=== PATIENT | female | born 1990 | race Caucasian/White ===

== ENCOUNTER → 2024-02-01 | Outpatient (CLI) | payer OTHER, SELFPAY ==
[2024-02-05 21:07] LABS: Chlamydia By Nucleic Acid AMP Negative (Negative); Gonococcus By Nucleic Acid AMP Negative (Negative)
== END | disposition home or self-care (01) ==
PROVIDERS: PCP Internal Medicine; Referring Provider Advanced Practice Midwife; Visit Provider Advanced Practice Midwife
DX: O09.90 Supervision of high risk pregnancy, unspecified, unspecified trimester (principal); Z3A.00 Weeks of gestation of pregnancy not specified
CPT/HCPCS: 87086; 87491; 87591

== ENCOUNTER → 2024-02-09 | Outpatient (CLI) | payer OTHER, SELFPAY ==
--- NOTE | 2024-02-09 14:17 | US_ITS ---
EXAM: US FIRST TRIMESTER , TRANSABDOMINAL CLINICAL INDICATION: dating TECHNIQUE: Real-time transabdominal obstetrical ultrasound of the maternal pelvis and a first trimester with image documentation. COMPARISON: No relevant prior studies available. FINDINGS: GESTATION: There are twin gestational sacs. Fetus A has a crown-rump length of 3.2 cm age 9 weeks 6 days. Fetus A has a heart rate of 167 bpm. Fetus B has a crown-rump length of 2.6 cm age 9 weeks 1 day. Fetus B has a heart rate of 173 bpm. Gestational sac for fetus A is 4.5 x 2.9 x 2.9 cm. Gestational sac for fetus B measures 3.3 x 3.1 x 1.9 cm. PLACENTA/AMNIOTIC FLUID: There is a hypoechoic area in the uterus that measures 2.3 x 1.3 cm which may represent a subchorionic hemorrhage. UTERUS/CERVIX: The uterus measures 11.6 x 7.9 x 8.7 cm. No myometrial mass. OVARIES: Unremarkable. No mass. FREE FLUID: No free fluid. US/Init OB < 14Wks US IMPRESSION: 1. Twin gestation with fetus A abdomen and average ultrasound age of 9 weeks 2 days and ultrasound estimated due date of 09/11/2024 and fetus B has an ultrasound age of 8 weeks 4 days and ultrasound estimated due date of 09/16/2024. heart rates are 167 and 173 bpm respectively. 2. Small hypoechoic area in the uterus which may represent a subchorionic hemorrhage. Electronically Signed: Justino Garcia MD at 0:19 EDT ,
== END | disposition home or self-care (01) ==
PROVIDERS: PCP Internal Medicine; Visit Provider Advanced Practice Midwife
DX: O99.210 Obesity complicating pregnancy, unspecified trimester (principal); E66.01 Morbid (severe) obesity due to excess calories; Z3A.00 Weeks of gestation of pregnancy not specified; Z98.891 History of uterine scar from previous surgery
CPT/HCPCS: 76801

== ENCOUNTER 2024-02-28 11:55 | Outpatient (CLI) | payer OTHER, SELFPAY ==
[2024-02-28 12:20] VITALS: BP 130/79; PULSE 97; RESP 16; TEMP 36.3
[2024-02-28] MEDS: 0.9% NaCl Peripheral Flush Adult/Peds IV (12:50)
[2024-02-28] MEDS: Dextrose 5%-Lactated Ringers 1,000 ML 999 ML IV (12:50)
[2024-02-28] MEDS: Ondansetron 4 MG/2 ML Vial IV (12:53)
[2024-02-28 13:12] LABS: Absolute Lymphocyte Count 1.18 X10^3/uL (0.83-4.51); Absolute Neutrophil Count 7.5 X10^3/uL (2.0-7.7); Basophil# 0.02 X10^3/uL; Basophil% 0.2 % (0-1); Eosinophil# 0.02 X10^3/uL; Eosinophils% 0.2 % (0-5); Hematocrit 36.7 % (37-47); Hemoglobin 12.2 g/dL (12.0-15.0); Lymphocyte # 1.18 X10^3/ul (0.83-4.51); Lymphocyte % 12.7 % (19-41); Mean Corp Hgb Conc 33.2 g/dL (32-36); Mean Corpuscular Hgb 25.7 pg (27.0-32.0); Mean Corpuscular Volume 77.4 fL (81-99); Monocyte# 0.53 X10^3/uL; Monocyte% 5.7 % (0-10); NRBC Flagged by Analyzer 0 % (0-5); Neutrophil # 7.49 X10^3/uL (2.7-7.7); Neutrophil % 80.7 % (47-70); Platelet Count 250 K/mm3 (150-450); RBC Distribution Width CV 13.1 % (11.6-14.6); RBC Distribution Width SD 36.3 fl (35.1-43.9); Red Blood Count 4.74 M/mm3 (4.2-5.4); White Blood Count 9.3 K/mm3 (4.4-11.0)
[2024-02-28 14:01] LABS: ALB/GLOB Ratio 0.6 RATIO (0.9-2.4); AST(SGOT) 18 U/L (15-37); Alanine Aminotransfer ALT/SGPT 25 U/L (13-56); Alkaline Phosphatase 89 U/L (45-117); Anion Gap 9 (5-15); BUN 5 mg/dL (7-18); BUN/Creat Ratio 7.9 RATIO (10-20); Chloride 104 mmol/L (98-107); Creatinine, Serum 0.63 mg/dL (0.55-1.02); EST Glomerular Filtration Rate 116 mL/min (>60); Est Glom Filt Rate - Afr Amer 141 mL/min (>60); Globulin 5.1 g/dL (2.2-4.2); Glucose 91 mg/dL (74-106); Protein, Total 8.1 g/dL (6.4-8.2); Sodium Level 134 mmol/L (136-145); Thyroid Stim Hormone (TSH) 0.65 uIU/mL (0.358-3.74)
[2024-02-28 14:18] LABS: HIV - WCH Non-Reactive (Nonreactive); Hepatitis B Surface Antigen Non-Reactive (Nonreactive); Hepatitis C Antibody Non-Reactive (Nonreactive); Rubella IgG Equiv (Nonreactive); Syphilis Antibodies Non-reactive
== END 2024-02-28 23:59 | disposition home or self-care (01) ==
LOC: MEDOUTP 11:58
PROVIDERS: Advanced Practice Midwife; PCP Internal Medicine; Visit Provider Obstetrics & Gynecology
DX: O99.280 Endocrine, nutritional and metabolic diseases complicating pregnancy, unspecified trimester (principal); E66.01 Morbid (severe) obesity due to excess calories; Z68.42 Body mass index [BMI] 45.0-49.9, adult; E86.0 Dehydration; Z3A.00 Weeks of gestation of pregnancy not specified; O99.210 Obesity complicating pregnancy, unspecified trimester
CPT/HCPCS: 96374; 96361; 96372; 80053; 83036; 84443; 85025; 86703; 86762; 86780; 86803; 86850; 86900; 86901; 87340; A4216; J2405

== ENCOUNTER → 2024-03-07 | Outpatient (CLI) | payer OTHER, SELFPAY | END | disposition home or self-care (01) | LOC: PAVLAB 11:35 | PROVIDERS: Advanced Practice Midwife; PCP Internal Medicine; Visit Provider Obstetrics & Gynecology | DX: Z34.02 Encounter for supervision of normal first pregnancy, second trimester (principal); Z31.430 Encounter of female for testing for genetic disease carrier status for procreative management ==

== ENCOUNTER → 2024-03-19 | Outpatient (CLI) | payer OTHER, SELFPAY | END | disposition home or self-care (01) | LOC: PAVLAB 10:14 | PROVIDERS: PCP Internal Medicine; Referring Provider Obstetrics & Gynecology; Visit Provider Obstetrics & Gynecology | DX: Z34.82 Encounter for supervision of other normal pregnancy, second trimester (principal) ==

== ENCOUNTER → 2024-05-07 | Outpatient (CLI) | payer OTHER, SELFPAY ==
--- NOTE | 2024-05-07 15:10 | RAD_ITS ---
STUDY: X-RAY CHEST REASON FOR EXAM: Female, 33 years old. Rib pain. TECHNIQUE: Frontal and lateral views of the chest. COMPARISON: None. FINDINGS: The lungs are clear and expanded. There is no demonstrated pleural abnormality. Normal size heart. Normal mediastinum and iza. Normal visualized pulmonary arteries. Normal visualized aortic arch and descending thoracic aorta. Normal visualized thoracic spine. Normal visualized ribs, clavicles, and shoulders. No abnormality of the visualized soft tissue structures of the upper abdomen. RAD/Chest PA and Lateral IMPRESSION: Normal x-ray examination of the chest. Electronically Signed: Guy Rios MD at 15:36 EDT ,
== END | disposition home or self-care (01) ==
LOC: RAD 15:05
PROVIDERS: PCP Internal Medicine; Referring Provider Obstetrics & Gynecology; Visit Provider Obstetrics & Gynecology
DX: R07.89 Other chest pain (principal)
CPT/HCPCS: 71046

== ENCOUNTER → 2024-05-30 | Outpatient (CLI) | payer OTHER, SELFPAY ==
[2024-05-30 11:12] LABS: Absolute Lymphocyte Count 0.97 X10^3/uL (0.83-4.51); Basophil# 0.02 X10^3/uL; Basophil% 0.2 % (0-1); Eosinophil# 0.03 X10^3/uL; Eosinophils% 0.3 % (0-5); Hematocrit 29.3 % (37-47); Hemoglobin 9.6 g/dL (12.0-15.0); Lymphocyte # 0.97 X10^3/ul (0.83-4.51); Lymphocyte % 10.1 % (19-41); Mean Corp Hgb Conc 32.8 g/dL (32-36); Mean Corpuscular Hgb 26.9 pg (27.0-32.0); Mean Corpuscular Volume 82.1 fL (81-99); Mean Platelet Vol. 9.1 fl (6.2-12.0); Monocyte# 0.43 X10^3/uL; Monocyte% 4.5 % (0-10); NRBC Flagged by Analyzer 0 % (0-5); Neutrophil # 8.03 X10^3/uL (2.7-7.7); Neutrophil % 83.5 % (47-70); Platelet Count 210 K/mm3 (150-450); RBC Distribution Width CV 13.7 % (11.6-14.6); RBC Distribution Width SD 40.3 fl (35.1-43.9); Red Blood Count 3.57 M/mm3 (4.2-5.4); White Blood Count 9.6 K/mm3 (4.4-11.0)
[2024-05-30 11:28] LABS: Glucose Challenge Gest 1H 50g 140 mg/dL (70-140)
[2024-05-30 12:14] LABS: HIV - WCH Non-Reactive (Nonreactive); Syphilis Antibodies Non-reactive
== END | disposition home or self-care (01) ==
PROVIDERS: PCP Internal Medicine; Referring Provider Advanced Practice Midwife; Visit Provider Advanced Practice Midwife
DX: Z13.1 Encounter for screening for diabetes mellitus (principal)
CPT/HCPCS: 36415; 82950; 85025; 86703; 86780

== ENCOUNTER → 2024-06-05 | Outpatient (CLI) | payer OTHER, SELFPAY ==
[2024-06-05 07:36] LABS: Glucose GTT-Gestation. Fasting 101 mg/dL (<105)
[2024-06-05 09:01] LABS: Glucose GTT-Gestational 1 Hr 152 mg/dL (<190)
[2024-06-05 10:02] LABS: Glucose GTT-Gestational 2 Hr 131 mg/dL (<165)
[2024-06-05 11:12] LABS: Glucose GTT-Gestational 3 Hr 97 L (<145)
== END | disposition home or self-care (01) ==
LOC: LAB 06:55
PROVIDERS: PCP Internal Medicine; Referring Provider Obstetrics & Gynecology; Visit Provider Obstetrics & Gynecology
DX: Z13.1 Encounter for screening for diabetes mellitus (principal)
CPT/HCPCS: 36415; 82951; 82952

== ENCOUNTER → 2024-06-19 | Outpatient (CLI) | payer OTHER, SELFPAY | END | disposition home or self-care (01) | LOC: WOBLAB 10:45 | PROVIDERS: PCP Internal Medicine; Referring Provider Obstetrics & Gynecology; Visit Provider Obstetrics & Gynecology | DX: Z34.02 Encounter for supervision of normal first pregnancy, second trimester (principal); Z3A.00 Weeks of gestation of pregnancy not specified | CPT/HCPCS: 36415 ==

== ENCOUNTER 2024-07-17 11:30 | Outpatient (CLI) | payer OTHER, SELFPAY ==
[2024-07-17] VITALS (17 sets, daily range): BP systolic 128–142; BP diastolic 67–86; PULSE 80–106; RESP 16; TEMP 36.5; O2SAT 92–100; BMI 45.8
[2024-07-17 11:58] LABS: Hematocrit 31.1 % (37-47); Hemoglobin 10.4 g/dL (12.0-15.0); Mean Corp Hgb Conc 33.4 g/dL (32-36); Mean Corpuscular Hgb 26.3 pg (27.0-32.0); Mean Corpuscular Volume 78.5 fL (81-99); Mean Platelet Vol. 9.6 fl (6.2-12.0); Platelet Count 207 K/mm3 (150-450); RBC Distribution Width CV 12.6 % (11.6-14.6); RBC Distribution Width SD 35.9 fl (35.1-43.9); Red Blood Count 3.96 M/mm3 (4.2-5.4); White Blood Count 9.3 K/mm3 (4.4-11.0)
[2024-07-17 12:37] LABS: AST(SGOT) 12 U/L (15-37); Alanine Aminotransfer ALT/SGPT 12 U/L (13-56); Creatinine, Serum 0.53 mg/dL (0.55-1.02); EST Glomerular Filtration Rate 143 mL/min (>60); Est Glom Filt Rate - Afr Amer 173 mL/min (>60); LDH 157 U/L (84-246); Uric Acid 5.3 mg/dL (2.6-6.0)
[2024-07-17 13:12] LABS: Protein, Urine (Random) 22.5 mg/dL (<11.9); Protein:Creat Ratio 172 mg/g CRE (0-200)
--- NOTE | 2024-07-17 19:09 | OB.TRI.HP_ITS ---
HPI - General HPI Narrative CHUCK SOL, is a 33 y/o @ 32 weeks with di/di twins who presents to L&D to rule out pre-eclampsia. She informed me in the office of frequent headaches and was found to have an inital blood pressure of 140's/90's. The lowest in the office was 138/85. She denies epigastric pain or visual changes. Maternal Data Information ML Calculator Estimated Delivery Date Method Current WG Current Estimate 09/09/24 LMP (Certain) 32w 2d Other Estimates 09/07/24 Ultrasound #1 32w 4d # 2 PFSH PFSH Medical History Anesthesia complication Scoliosis Depression Anxiety Anemia Migraine headache Gastric reflux Non-smoker Seasonal allergies Congenital duplication of colon Home Medications ?Medication ?Instructions ?Recorded ?Last Taken ?Type PNV 153-FA 400 mcg-om3 35 mg-dha 1 tab PO DAILY SUPPLEMENT 01/26/24 07/16/24 History 25 mg-epa 5 mg-fish oil chew tablet omeprazole 20 mg capsule,delayed 20 mg PO DAILY GERD 01/26/24 07/16/24 History release ondansetron 4 mg disintegrating 4 mg PO Q6H PRN nausea and 02/29/24 07/16/24 Rx tablet vomiting #30 tabs cyclobenzaprine 5 mg tablet 5 mg PO QHS PRN headache #30 tabs 06/19/24 Unknown Rx venlafaxine 75 mg capsule,extended 75 mg PO QAM ANTI-DEPRESSANT #30 06/19/24 07/16/24 Rx release 24 hr (Effexor XR) caps ferrous sulfate 325 mg (65 mg 325 mg PO DAILY SUPPLEMENT 07/08/24 07/16/24 History iron) tablet (FeroSul) Allergy/AdvReac Type Severity Reaction Status Date / Time No Known Allergies Allergy Verified 07/17/24 11:58 Family History Father Colon cancer, Onset Age: 58 colon CVA (cerebral vascular accident), Onset Age: 59 post colon surgery Surgical History H/O section History of arthroscopic knee surgery History of cholecystectomy Social History (Reviewed 07/17/24 @ 10:50 by Alla Mercado adopted: No household members: spouse and children number of children: 1 current occupational status: employed 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 current occupational exposures/hazards: No pets and animals: Yes pets and animals: dog(s) history of recent travel: Yes ([place], [place]) out of state: Yes out of country: No sexually active: Yes Smoking Status: Never smoker alcohol intake: never substance use type: does not use well-balanced diet: daily or most days caffeine: Yes Type: carbonated beverages Number of servings: 3 eating out: 1-3 times/week during the past year weight has: increased > 10 lbs what type of physical activity do you participate in: walking frequency: daily duration: 15-30 minutes/day mamta/worship: None seatbelt use: always do you feel safe at home: Yes additional social history: Issac [employer]- [employer] History 2 Elective abortions Hx Para 1 Spontaneous abortions Hx # Term Pregnancies Ectopic pregnancies Hx # Pregnancies Multiple births # of living children 1 Past Pregnancies Del. Date Name GA/Weeks Outcome Route Bth Weight Infant Gen Labor Lgth Anesthesia Del Locatn Provider FOB 10/13/13 Melissa 38 live - full term 6#15 oz Female [facility] Dr. Estelle Davenport Delivery Date: 10/13/13 Last Updated by: Jasmin Eugene CS failure to progress, general due to scoliosis Visit Details Expected Delivery Route/Plan RLTCS and BS Plans Covid status: [] Flu vaccine: [] Tdap vaccine: [] Rhogam: [] LARC form signed: [] Problem list reviewed and updated with the most current plan of care details and appropriate orders placed. Relevant counseling for the gestational age provided. Continue routine care and follow up unless otherwise noted in visit notes/problem list details OB Flowsheet Initial Weight: Not Recorded Date -?-?-?-?-?-?-?-?-?-?-?-?- EGA Weight BP Urine Prot -?-?-?-?-?-?-?-?-?-?-?-?- Glucose FHR FuHt Pres Dilation -?-?-?-?-?-?-?-?-?-?-?-?- Effaced St Visit Note 02/01/24 -?-?-?-?-?-?-?-?-?-?-?-?- 8w 3d 296 lb 8 oz 125/84 -?-?-?-?-?-?-?-?-?-?-?-?- A 187 -?-?-?-?-?-?-?-?-?-?-?-?- B A -?-?-?-?-?-?-?-?-?-?-?-?- B -?-?-?-?-?-?-?-?-?-?-?-?- A -?-?-?-?-?-?-?-?-?-?-?-?- B A KW- CRL not cons with dates. formal us ordered. NIPT and Carrier to be drawn before next appt. A1C with labs for BMI. general anest with last C/S. Will need anesthesia consult prior to R C/S. -?-?-?-?-?-?-?-?-?-?-?-?- B 03/07/24 -?-?-?-?-?-?-?-?-?-?-?-?- 13w 3d 286 lb 4 oz 126/85 Nega tive -?-?-?-?-?-?-?-?-?-?-?-?- Negative A 147 -?-?-?-?-?-?-?-?-?-?-?-?- B 155 A -?-?-?-?-?-?-?-?-?-?-?-?- B -?-?-?-?-?-?-?-?-?-?-?-?- A -?-?-?-?-?-?-?-?-?-?-?-?- B A JV- di di twins on hosptial scan. difficult to scan today but both CRL are 13 weeks 1 day and consistent with LMP. ordering NIPT and carrier testing today. pt wasnts rpt section. is worried about her spine curve and having to go to sleep. had general with last section. wants anesthesia consult prior to section. -?-?-?-?-?-?-?-?-?-?-?-?- B 04/05/24 -?-?-?-?-?-?-?-?-?-?-?-?- 17w 4d 283 lb 117/80 -?-?-?-?-?-?-?-?-?-?-?-?- A 145 -?-?-?-?-?-?-?-?-?-?-?-?- B 145 A -?-?-?-?-?-?-?-?-?-?-?-?- B -?-?-?-?-?-?-?-?-?-?-?-?- A -?-?-?-?-?-?-?-?-?-?-?-?- B A SM- no vb lof cr amping -?-?-?-?-?-?-?-?-?-?-?-?- B 04/30/24 -?-?-?-?-?-?-?-?-?-?-?-?- 21w 1d 284 lb 6 oz 134/80 Nega tive -?-?-?-?-?-?-?-?-?-?-?-?- Negative A 150 -?-?-?-?-?-?-?-?-?-?-?-?- B 148 A -?-?-?-?-?-?-?-?-?-?-?-?- B -?-?-?-?--?-?-?-?-?-?-?-?- A -?-?-?-?-?-?-?-?-?-?-?-?- B A KW- no vb/crampi ng. 28 week labs discussed and drink given. Has follow up anatomy US in a few weeks. -?-?-?-?-?-?-?-?--?-?-?-?- B 05/07/24 -?-?-?-?-?-?-?-?-?-?-?-?- 22w 1d 283 lb 8 oz 130/81 Nega tive -?-?-?-?-?-?-?-?-?-?-?-?- Negative A 144 -?-?-?-?-?-?-?-?-?-?-?-?- B 143 A Transverse -?-?-?-?-?-?-?-?-?-?-?-?- B Transverse -?-?-?-?-?-?-?-?-?-?-?-?- A -?-?-?-?-?-?-?-?-?-?-?-?- B A JV- pt presents with acute right lower rib pain radiation around chest to back. She has tenderness with palpation over the bucket handle location. She also has some reproducible right pump handle location pain as well. sending for pa/lateral cxr. likely costochondritis or bucket handle dysfunction, but need to rule out fracture or other etiology. pt states was in bed and rolled over and felt the pain instantly. -?-?-?-?-?-?-?-?-?-?-?-?- B 05/30/24 -?-?-?-?-?-?-?-?-?-?-?-?- 25w 3d 288 lb 118/81 Negative -?-?-?-?-?-?-?-?-?-?-?-?- Negative A 155 -?-?-?-?-?-?-?-?-?-?-?-?- B 145 A -?-?-?-?-?-?-?-?-?-?-?-?- B -?-?-?-?-?-?-?-?-?-?-?-?- A -?-?-?-?-?-?-?-?-?-?-?-?- B A SM- no vb lof go od fm n oregular ctx discussed anatomy findings, patient wants NIPT again -?-?-?-?-?-?-?-?-?-?-?-?- B 06/19/24 -?-?-?-?-?-?-?-?-?-?-?-?- 28w 2d 287 lb 119/85 -?-?-?-?-?-?-?-?-?-?-?-?- A 130 -?-?-?-?-?-?-?-?-?-?-?-?- B 120 A Cephalic -?-?-?-?-?-?-?-?-?-?-?-?- B Breech -?-?-?-?-?-?-?-?-?-?-?-?- A -?-?-?-?-?-?-?-?-?-?-?-?- B A JV- pt is tearfu l today. after long discussion, plan is to restart antidepressants. Requesting 37 week rpt cs and likely will happen due to single umbilical artery and other high risk problems. request anesthesia consult placed. needs echo later this week. bpps or nsts weekly after 34 weeks. -?-?-?-?-?-?-?-?-?-?-?-?- B 07/04/24 -?-?-?-?-?-?-?-?-?-?-?-?- 30w 3d 288 lb 4 oz 131/88 Nega tive -?-?-?-?-?-?-?-?-?-?-?-?- Negative A 140 -?-?-?-?-?-?-?-?-?-?-?-?- B 153 A Transverse -?-?-?-?-?-?-?-?-?-?-?-?- B Transverse -?-?-?-?-?-?-?-?-?-?-?-?- A -?-?-?-?-?-?-?-?-?-?-?-?- B A JV- still lots o f pressure, no contractions. had normal echos. next growth scan in in 2 weeks. -?-?-?-?-?-?-?-?-?-?-?-?- B 07/17/24 -?-?-?-?-?-?-?-?-?-?-?-?- 32w 2d 294 lb 141/87 Trace -?--?-?-?-?-?-?-?-?-?-?-?- Negative A 146 -?-?-?-?-?-?-?-?-?-?-?-?- B 148 A Transverse -?-?-?-?-?-?-?-?-?-?-?-?- B Transverse -?-?-?-?-?-?-?-?-?-?-?-?- A -?-?-?-?-?-?-?-?-?-?-?-?- B A JV- pt has eleva josemanuel pressures today and a headache for last week. sending to L&D for Pre-e work-up. -?-?-?-?-?-?-?-?-?-?-?-?- B ROS Constitutional Constitutional: Reports systems reviewed and no addt'l complaints, except as documented Gastrointestinal Gastrointestinal: Denies bloating, constipation, cramping, diarrhea, nausea or vomiting Genitourinary Genitourinary: Reports other Details: Denies vaginal odor, vaginal bleeding, or vaginal discharge ; Denies difficulty urinating or flank pain NST FHR Rate Baby A Baseline: 150 Variability:: Moderate Accelerations:: 15 x 15 Decelerations:: None NST Reactive:: Yes FHR Category:: Category I FHR Rate Baby B Baseline: 160 Variability:: Moderate Accelerations:: 15 x 15 Decelerations:: None NST Reactive:: Yes Assessment & Plan (1) Headache in : (2) Anemia affecting : COMMENT: repeat cbc in 4 weeks (3) Rib pain on right side: COMMENT: CXR ordered (4) Two vessel umbilical cord: COMMENT: twin A (5) Rubella non-immune status, antepartum: COMMENT: equivocal. offer MMR PP (6) Dichorionic diamniotic twin gestation: COMMENT: plan anesthesia consult prior to section. had general with last section. (7) Supervision of high risk , antepartum: COMMENT: PRR, , ML 09/09/23, KRISTIE Torres, Issac (8) Abnormal Pap smear of cervix: COMMENT: 12/14/23- +HPV (9) Previous section: COMMENT: RLTCS scheduled for 08/20 @ 12 with JV desires repeat and BTO. (10) COVID: COMMENT: asa 81mg daily (11) Anxiety and depression: (12) : QUALIFIERS: Weeks of gestation: 32 weeks Qualified Code(s): Z3A.32 - 32 weeks gestation of COMMENT: NIPT low risk, Carrier neg. . anatomy reviewed and needs fu views to complete (13) PCOS (polycystic ovarian syndrome): (14) Morbid obesity with BMI of 45.0-49.9, adult: COMMENT: 48 at NOB-NSTs at 34 weeks (15) Scoliosis: COMMENT: was put under general anesthesia. Anesthesia consult scheduled for 07/08 @ PLAN: Plan bpp is reactive x 2, PIH labs are all normal. BP's were within her normal range ok to dc to home. Plan for her to have an anesthesia consult due to scoliosis Charges/Coding Multi Select Codes Urinary/Genital Urinary/Genital CPT Codes: 64111-02 non-stress test Interp
== END 2024-07-17 14:23 | disposition home or self-care (01) ==
LOC: WPOUT 11:35 → WP 11:36
PROVIDERS: PCP Internal Medicine; Referring Provider Obstetrics & Gynecology; Visit Provider Obstetrics & Gynecology
DX: O30.043 Twin pregnancy, dichorionic/diamniotic, third trimester (principal); E66.01 Morbid (severe) obesity due to excess calories; Z3A.32 32 weeks gestation of pregnancy; O99.343 Other mental disorders complicating pregnancy, third trimester; F32.A Depression, unspecified; F41.9 Anxiety disorder, unspecified; Z79.899 Other long term (current) drug therapy; O99.013 Anemia complicating pregnancy, third trimester; O69.89X1 Labor and delivery complicated by other cord complications, fetus 1; O34.211 Maternal care for low transverse scar from previous cesarean delivery; O99.213 Obesity complicating pregnancy, third trimester
CPT/HCPCS: 36415; 59025; 59050; 82565; 82570; 83615; 84156; 84450; 84460; 84550; 85027; 99221; G0378

== ENCOUNTER 2024-07-24 13:38 | Outpatient (CLI) | payer OTHER, SELFPAY ==
[2024-07-24] VITALS (9 sets, daily range): BP systolic 135–158; BP diastolic 85–98; PULSE 86–106; RESP 15; TEMP 36.5; BMI 45.6
[2024-07-24] MEDS: Lactated Ringers 1,000 ML 999 ML IV (14:15)
[2024-07-24] MEDS: Ondansetron 4 MG/2 ML Vial IM (15:08)
[2024-07-24] MEDS: Mag Hydrox/Al Hydrox/Simeth 30 ML UDC PO (15:08)
[2024-07-24 15:16] LABS: AST(SGOT) 12 U/L (15-37); Alanine Aminotransfer ALT/SGPT 11 U/L (13-56); Creatinine, Serum 0.51 mg/dL (0.55-1.02); EST Glomerular Filtration Rate 147 mL/min (>60); Est Glom Filt Rate - Afr Amer 178 mL/min (>60); Estimated Creatinine Clearance 224.39 ml/min; Uric Acid 4.9 mg/dL (2.6-6.0)
[2024-07-24 15:25] LABS: Protein:Creat Ratio 173 mg/g CRE (0-200)
[2024-07-24] MEDS: Betamethasone/Betamethasone 30 MG/5 ML Vial 12 MG IM (15:27)
[2024-07-24 15:41] LABS: Hematocrit 30.7 % (37-47); Hemoglobin 9.9 g/dL (12.0-15.0); Mean Corp Hgb Conc 32.2 g/dL (32-36); Mean Corpuscular Hgb 25.7 pg (27.0-32.0); Mean Corpuscular Volume 79.7 fL (81-99); Mean Platelet Vol. 10.2 fl (6.2-12.0); Platelet Count 188 K/mm3 (150-450); RBC Distribution Width CV 12.9 % (11.6-14.6); RBC Distribution Width SD 36.5 fl (35.1-43.9); Red Blood Count 3.85 M/mm3 (4.2-5.4); White Blood Count 10.7 K/mm3 (4.4-11.0)
[2024-07-24 16:03] LABS: ALB/GLOB Ratio 0.5 RATIO (0.9-2.4); AST(SGOT) 10 U/L (15-37); Alanine Aminotransfer ALT/SGPT 13 U/L (13-56); Albumin, Serum 2.3 g/dL (3.2-5.0); Alkaline Phosphatase 159 U/L (45-117); Anion Gap 6 (5-15); BUN 4 mg/dL (7-18); BUN/Creat Ratio 7.5 RATIO (10-20); Calcium,Total 8.9 mg/dL (8.5-10.1); Chloride 108 mmol/L (98-107); Creatinine, Serum 0.54 mg/dL (0.55-1.02); EST Glomerular Filtration Rate 140 mL/min (>60); Est Glom Filt Rate - Afr Amer 169 mL/min (>60); Estimated Creatinine Clearance 211.93 ml/min; Globulin 4.5 g/dL (2.2-4.2); Glucose 96 mg/dL (74-106); Lipase 34 U/L (13-75); Protein, Total 6.8 g/dL (6.4-8.2); Sodium Level 138 mmol/L (136-145)
--- NOTE | 2024-08-11 06:20 | OB.TRI.PN_ITS ---
Progress Notes Date of Service: 07/24/24 Progress Note: Patient presents for triage evaluation secondary to abdominal pain, vomiting FHT: 145 Moderate variability reactive no decelerations category I tracing [place]: n oregular Contractions Assessment and plan: abdominal pain, vomiting 33 weeks Reactive NST, reassuring maternal and status patient discharged to home to follow-up as scheudled. See problem list details for additional plan information. Laboratory Studies: Laboratory Tests 07/24/24 07/24/24 Range/Units 15:00 14:15 WBC 10.7 Cancelled Corrected WBC Cancelled RBC 3.85 L Cancelled Hgb 9.9 L Cancelled Hct 30.7 L Cancelled MCV 79.7 L Cancelled MCH 25.7 L Cancelled MCHC 32.2 Cancelled RDW Std Deviation 36.5 Cancelled RDW Coeff of Shola 12.9 Cancelled Plt Count 188 Cancelled MPV 10.2 Cancelled Diff Path Review Cancelled Sodium 138 (136-145) mmol/L Potassium 4.0 (3.5-5.1) mmol/L Chloride 108 H (98-107) mmol/L Carbon Dioxide 25.0 (21.0-32.0) mmol/L Anion Gap 6 (5-15) BUN 4 L (7-18) mg/dL Creatinine 0.54 L 0.51 L (0.55-1.02) mg/dL Estim Creat Clear Calc 211.93 224.39 ml/min Est GFR (MDRD) Af Amer 169 178 (>60) mL/min Est GFR (MDRD) Non-Af 140 147 (>60) mL/min BUN/Creatinine Ratio 7.5 L (10-20) RATIO Glucose 96 (74-106) mg/dL Uric Acid 4.9 (2.6-6.0) mg/dL Calcium 8.9 (8.5-10.1) mg/dL Total Bilirubin 0.20 (0.20-1.00) mg/dL AST 10 L 12 L (15-37) U/L ALT 13 11 L (13-56) U/L Alkaline Phosphatase 159 H (45-117) U/L Total Protein 6.8 (6.4-8.2) g/dL Albumin 2.3 L (3.2-5.0) g/dL Globulin 4.5 H (2.2-4.2) g/dL Albumin/Globulin Ratio 0.5 L (0.9-2.4) RATIO Lipase 34 (13-75) U/L U Random Total Protein 31.0 H (<11.9) mg/dL Urine Creatinine 179.00 (NO RANGE EST.) mg/dL Protein/Creatinin Ratio 173 (0-200) mg/g CRE Charges/Coding Procedures Urinary/Genital 52xxx-59xxx: [id number] non-stress test Interp Assessment & Plan (1) 33 weeks gestation of : (2) Abdominal pain during in third trimester:
== END 2024-07-24 16:44 | disposition home or self-care (01) ==
LOC: WPOUT 13:41 → WP 13:41
PROVIDERS: PCP Internal Medicine; Referring Provider Obstetrics & Gynecology; Visit Provider Obstetrics & Gynecology
DX: O99.891 Other specified diseases and conditions complicating pregnancy (principal); Z3A.33 33 weeks gestation of pregnancy; R10.9 Unspecified abdominal pain
CPT/HCPCS: 96360; 36415; 59025; 59050; 80053; 82565; 82570; 83690; 84156; 84450; 84460; 84550; 85027; 96372; 99221; G0378; J0702; J2405

== ENCOUNTER 2024-07-25 14:53 | Outpatient (CLI) | payer OTHER, SELFPAY ==
[2024-07-25] MEDS: Betamethasone/Betamethasone 30 MG/5 ML Vial 12 MG IM (15:18)
[2024-07-25 15:19] VITALS: BP 135/74; PULSE 94
--- NOTE | 2024-07-25 15:38 | NURSING ---
Called Dr. Sterling at 1529 to notify of pt receiving second dose of Celestone. She is 33.3 weeks with twins. Pt c/o feeling very tired, having increased nausea and overall feeling of malaise since starting on labetalol and receiving Celestone yesterday. BP was 135/74 and Pulse of 94. Pt was started on Labetalol yesterday for elevated BP in the 150's while she was here and has a f/u scheduled for Monday in the office. Pt is taking her BP during the day and before taking her labetalol. Asked Dr. Sterling if there was anything that she would like done before patient goes home. Dr. Sterling states that BP is appropriate after starting labetalol and to f/u in the office on monday, but to notify the doctor production engineer if symptoms change or worsen.
--- NOTE | 2024-08-05 09:45 | PCM.PN.BLA ---
Progress Note patient presents today for her second celestone injection only. The order was written for 12.5 mg IM x2, today will be her second injection. She has no complaints.
== END 2024-07-25 15:30 | disposition home or self-care (01) ==
LOC: WPOUT 14:57 → WP 14:57
PROVIDERS: PCP Internal Medicine; Referring Provider Obstetrics & Gynecology; Visit Provider Obstetrics & Gynecology
DX: Z34.90 Encounter for supervision of normal pregnancy, unspecified, unspecified trimester (principal); Z3A.00 Weeks of gestation of pregnancy not specified
CPT/HCPCS: 96372; 99221; G0378; J0702

== ENCOUNTER 2024-07-26 15:41 | Inpatient (IN) | payer OTHER, SELFPAY ==
[2024-07-26] VITALS (32 sets, daily range): BP systolic 102–153; BP diastolic 49–85; PULSE 70–116; RESP 16–20; TEMP 36.3–37.7; O2SAT 96–100; BMI 45.7
--- NOTE | 2024-07-26 12:13 | US_ITS ---
EXAM: US BIOPHYSICAL PROFILE WITHOUT NON-STRESS TESTING CLINICAL INDICATION: well being - twins TECHNIQUE: Real-time ultrasound of the maternal pelvis for biophysical profile evaluation for both of the twin fetuses with image documentation. COMPARISON: No relevant prior studies available. FINDINGS: Live twin intrauterine . The placenta is anterior. (The brain is noted which may indicate monochorionic/diamniotic gestation. FETUS A: heart rate: 147 bpm. Transverse lie with head to the maternal right. BREATHING MOVEMENTS: Absent. Score 0/2. GROSS BODY MOVEMENTS: Absent. Score 0/2. TONE: Present. Score 2/2. QUALITATIVE AMNIOTIC FLUID VOLUME: Within normal limits. Score 2/2. FETUS B: heart rate: 143 bpm. Transverse lie with head to the maternal left. BREATHING MOVEMENTS: Absent. Score 0/2. GROSS BODY MOVEMENTS: Present. Score 2/2. TONE: Present. Score 2/2. QUALITATIVE AMNIOTIC FLUID VOLUME: Within normal limits. Score 2/2. IMPRESSION: Live twin intrauterine . Fetus A has a biophysical profile score of 4/8. Fetus B has a biophysical profile score of 6/8. Electronically Signed: Akbar Ferguson MD at 23:32 EST , EXAM: US BIOPHYSICAL PROFILE WITHOUT NON-STRESS TESTING CLINICAL INDICATION: well being - twins TECHNIQUE: Real-time ultrasound of the maternal pelvis for biophysical profile evaluation for both of the twin fetuses with image documentation. COMPARISON: No relevant prior studies available. FINDINGS: Live twin intrauterine . The placenta is anterior. (The brain is noted which may indicate monochorionic/diamniotic gestation. FETUS A: heart rate: 147 bpm. Transverse lie with head to the maternal right. BREATHING MOVEMENTS: Absent. Score 0/2. GROSS BODY MOVEMENTS: Absent. Score 0/2. TONE: Present. Score 2/2. QUALITATIVE AMNIOTIC FLUID VOLUME: Within normal limits. Score 2/2. FETUS B: heart rate: 143 bpm. Transverse lie with head to the maternal left. BREATHING MOVEMENTS: Absent. Score 0/2. GROSS BODY MOVEMENTS: Present. Score 2/2. TONE: Present. Score 2/2. QUALITATIVE AMNIOTIC FLUID VOLUME: Within normal limits. Score 2/2. US/Biophysical Prof W/O Non Stres IMPRESSION: Live twin intrauterine . Fetus A has a biophysical profile score of 4/8. Fetus B has a biophysical profile score of 6/8. Electronically Signed: Akbar Ferguson MD at 23:33 EST ,
[2024-07-26] MEDS: Lactated Ringers 1,000 ML 999 ML IV (15:50)
[2024-07-26 16:06] LABS: Absolute Lymphocyte Count 1.33 X10^3/uL (0.83-4.51); Absolute Neutrophil Count 10.4 X10^3/uL (2.0-7.7); Basophil# 0.03 X10^3/uL; Basophil% 0.2 % (0-1); Hematocrit 32.4 % (37-47); Hemoglobin 10.6 g/dL (12.0-15.0); Lymphocyte # 1.33 X10^3/ul (0.83-4.51); Lymphocyte % 10.3 % (19-41); Mean Corp Hgb Conc 32.7 g/dL (32-36); Mean Corpuscular Hgb 26.4 pg (27.0-32.0); Mean Corpuscular Volume 80.6 fL (81-99); Mean Platelet Vol. 9.9 fl (6.2-12.0); Monocyte# 0.85 X10^3/uL; Monocyte% 6.6 % (0-10); NRBC Flagged by Analyzer 0 % (0-5); Neutrophil # 10.42 X10^3/uL (2.7-7.7); Neutrophil % 81.1 % (47-70); Platelet Count 236 K/mm3 (150-450); RBC Distribution Width CV 12.7 % (11.6-14.6); RBC Distribution Width SD 36.4 fl (35.1-43.9); Red Blood Count 4.02 M/mm3 (4.2-5.4); White Blood Count 12.9 K/mm3 (4.4-11.0)
--- NOTE | 2024-07-26 16:18 | PCM.HP.OB ---
HPI - General General Date of Admission: 07/26/24 HPI Narrative CHUCK SOL, is a 33 y/o , di/di twins at 33 weeks 4 days who presents Iram[facility]D after a fall. NST of baby A was non-reactive without accelerations and no decelerations. Baby B was reactive. A BPP was performed and baby A's score was 4/10, baby B's score was 8/10. Baby also has a single artery cord and borderline polyhydramnios. The patient was worked up for possible pre-eclampsia 48 hours ago and received steroids x 2. Consultation with [facility] in [place] recommended urgent delivery due to non-reassuring testing of baby A. they do not recommend transportation at this time. The patient has a history of general anesthesia due to scoliosis and 3 tries with an epidural in the past . Dr. Johnston reviewed her PAT assessment a week ago and agreed to try a spinal and if no success, the plan is to proceed with a general anesthetic. Maternal Data Information ML Calculator Estimated Delivery Date Method Current WG Current Estimate 09/09/24 LMP (Certain) 33w 4d Other Estimates 09/07/24 Ultrasound #1 33w 6d # 2 PFSH PFSH Medical History Anesthesia complication Scoliosis Depression Anxiety Anemia Migraine headache Gastric reflux Non-smoker Seasonal allergies Congenital duplication of colon Home Medications ?Medication ?Instructions ?Recorded ?Last Taken ?Type PNV 153-FA 400 mcg-om3 35 mg-dha 1 tab PO DAILY SUPPLEMENT 01/26/24 07/25/24 History 25 mg-epa 5 mg-fish oil chew tablet omeprazole 20 mg capsule,delayed 20 mg PO DAILY GERD 01/26/24 07/25/24 History release ondansetron 4 mg disintegrating 4 mg PO Q6H PRN nausea and 02/29/24 07/24/24 Rx tablet vomiting #30 tabs cyclobenzaprine 5 mg tablet 5 mg PO QHS PRN headache #30 tabs 06/19/24 Unknown Rx venlafaxine 75 mg capsule,extended 75 mg PO QAM ANTI-DEPRESSANT #30 06/19/24 07/26/24 Rx release 24 hr (Effexor XR) caps ferrous sulfate 325 mg (65 mg 325 mg PO DAILY SUPPLEMENT 07/08/24 07/26/24 History iron) tablet (FeroSul) labetalol 100 mg tablet 100 mg PO BID hypertension #60 07/24/24 07/26/24 Rx tabs Allergy/AdvReac Type Severity Reaction Status Date / Time No Known Allergies Allergy Verified 07/26/24 16:13 Family History Father Colon cancer, Onset Age: 58 colon CVA (cerebral vascular accident), Onset Age: 59 post colon surgery Surgical History H/O section History of arthroscopic knee surgery History of cholecystectomy Social History adopted: No household members: spouse and children number of children: 1 current occupational status: employed 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 current occupational exposures/hazards: No pets and animals: Yes pets and animals: dog(s) history of recent travel: Yes ([place], [place]) out of state: Yes out of country: No sexually active: Yes Smoking Status: Never smoker alcohol intake: never substance use type: does not use well-balanced diet: daily or most days caffeine: Yes Type: carbonated beverages Number of servings: 3 eating out: 1-3 times/week during the past year weight has: increased > 10 lbs what type of physical activity do you participate in: walking frequency: daily duration: 15-30 minutes/day mamta/caodaism: None seatbelt use: always do you feel safe at home: Yes additional social history: Issac [employer] History 2 Elective abortions Hx Para 1 Spontaneous abortions Hx # Term Pregnancies Ectopic pregnancies Hx # Pregnancies Multiple births # of living children 1 Past Pregnancies Del. Date Name GA/Weeks Outcome Route Bth Weight Gen Labor Lgth Anesthesia Del Locatn Provider FOB 10/13/13 Melissa 38 live - full term 6#15 oz Female [facility] Dr. Estelle Davenport Delivery Date: 10/13/13 Last Updated by: Jasmin Eugene CS failure to progress, general due to scoliosis Visit Details Expected Delivery Route/Plan RLTCS and BS Plans Covid status: [] Flu vaccine: [] Tdap vaccine: [] Rhogam: [] LARC form signed: [] Problem list reviewed and updated with the most current plan of care details and appropriate orders placed. Relevant counseling for the gestational age provided. Continue routine care and follow up unless otherwise noted in visit notes/problem list details OB Flowsheet Initial Weight: Not Recorded Date <del>?</del> EGA Weight BP Urine Prot <del>?</del> Glucose FHR FuHt Pres Dilation <del>?</del> Effaced St Visit Note 02/01/24 <del>?</del> 8w 3d 296 lb 8 oz 125/84 <del>?</del> A 187 <del>?</del> B A <del>?</del> B <del>?</del> A <del>?</del> B A KW- CRL not cons with dates. formal us ordered. NIPT and Carrier to be drawn before next appt. A1C with labs for BMI. general anest with last C/S. Will need anesthesia consult prior to R C/S. <del>?</del> B 03/07/24 <del>?</del> 13w 3d 286 lb 4 oz 126/85 Negative <del>?</del> Negative A 147 <del>?</del> B 155 A <del>?</del> B <del>?</del> A <del>?</del> B A JV- di di twins on hosptial scan. difficult to scan today but both CRL are 13 weeks 1 day and consistent with LMP. ordering NIPT and carrier testing today. pt wasnts rpt section. is worried about her spine curve and having to go to sleep. had general with last section. wants anesthesia consult prior to section. <del>?</del> B 04/05/24 <del>?</del> 17w 4d 283 lb 117/80 <del>?</del> A 145 <del>?</del> B 145 A <del>?</del> B <del>?</del> A <del>?</del> B A SM- no vb lof cramping <del>?</del> B 04/30/24 <del>?</del> 21w 1d 284 lb 6 oz 134/80 Negative <del>?</del> Negative A 150 <del>?</del> B 148 A <del>?</del> B <del>?</del> A <del>?</del> B A KW- no vb/cramping. 28 week labs discussed and drink given. Has follow up anatomy US in a few weeks. <del>?</del> B 05/07/24 <del>?</del> 22w 1d 283 lb 8 oz 130/81 Negative <del>?</del> Negative A 144 <del>?</del> B 143 A Transverse <del>?</del> B Transverse <del>?</del> A <del>?</del> B A JV- pt presents with acute right lower rib pain radiation around chest to back. She has tenderness with palpation over the bucket handle location. She also has some reproducible right pump handle location pain as well. sending for pa/lateral cxr. likely costochondritis or bucket handle dysfunction, but need to rule out fracture or other etiology. pt states was in bed and rolled over and felt the pain instantly. <del>?</del> B 05/30/24 <del>?</del> 25w 3d 288 lb 118/81 Negative <del>?</del> Negative A 155 <del>?</del> B 145 A <del>?</del> B <del>?</del> A <del>?</del> B A SM- no vb lof good fm n oregular ctx discussed anatomy findings, patient wants NIPT again <del>?</del> B 06/19/24 <del>?</del> 28w 2d 287 lb 119/85 <del>?</del> A 130 <del>?</del> B 120 A Cephalic <del>?</del> B Breech <del>?</del> A <del>?</del> B A JV- pt is tearful today. after long discussion, plan is to restart antidepressants. Requesting 37 week rpt cs and likely will happen due to single umbilical artery and other high risk problems. request anesthesia consult placed. needs echo later this week. bpps or nsts weekly after 34 weeks. <del>?</del> B 07/04/24 <del>?</del> 30w 3d 288 lb 4 oz 131/88 Negative <del>?</del> Negative A 140 <del>?</del> B 153 A Transverse <del>?</del> B Transverse <del>?</del> A <del>?</del> B A JV- still lots of pressure, no contractions. had normal echos. next growth scan in in 2 weeks. <del>?</del> B 07/17/24 <del>?</del> 32w 2d 294 lb 141/87 Trace <del>?</del> Negative A 146 <del>?</del> B 148 A Transverse <del>?</del> B Transverse <del>?</del> A <del>?</del> B A JV- pt has elevated pressures today and a headache for last week. sending to L&D for Pre-e work-up. <del>?</del> B ROS Constitutional Constitutional: Denies change in weight, fatigue, fever(s), headache(s), poor appetite or weakness Eyes Eyes: Denies blurry vision, change in vision, seeing flashes or spots in vision ENT HEENT: Denies dizziness, headache(s), loss taste/smell or sore throat Cardiovascular Cardiovascular: Denies chest pain, dizziness, dyspnea, irregular heart rhythm, leg edema, palpitations, rapid heart rate or vomiting Respiratory/Chest Respiratory/Chest: Denies chest tightness, cough, dyspnea or breast pain Gastrointestinal Gastrointestinal: Denies abdominal pain, anorexia, constipation, cramping, diarrhea, hemorrhoids, vomiting or weight changes Genitourinary Genitourinary: Denies dysuria, flank pain, genital lesions, genital pain, urinary frequency or urinary urgency Musculoskeletal Musculoskeletal: Denies back pain, difficulty walking, joint pain, limited range of motion, muscle cramps or numbness Integumentary Integumentary: Denies lesions or unusual bruising Neurologic Neurologic: Denies abnormal movements, abnormal speech, dizziness, numbness, seizure-like activity or syncope Psychiatric Psychiatric: Denies anxiety, behavioral changes, change in appetite, change in libido, cognitive impairment, confusion, depression, difficulty concentrating, hallucinations or suicidal thoughts Endocrine Endocrinology: Denies excessive sweating, polydipsia or polyuria Hematologic/Lymphatic Hematologic/Lymphatic: Denies easy bleeding, easy bruising or lymphadenopathy Allergic/Immunologic Allergic/Immunologic: Denies itchy eyes, lip swelling, seasonal rhinorrhea, rhinitis, throat swelling, tongue swelling, eczemia, wheezing or asthma Vital Signs Vital Signs Vital Signs: 07/26/24 09:16 07/26/24 09:16 07/26/24 09:18 Temperature Temperature Source Pulse Rate 89 90 Respiratory Rate Blood Pressure 128/66 H BP Systolic 128 BP Diastolic 66 Pulse Ox 07/26/24 09:18 07/26/24 09:23 07/26/24 09:23 Temperature Temperature Source Pulse Rate 81 Respiratory Rate Blood Pressure BP Systolic BP Diastolic Pulse Ox 98 97 07/26/24 11:17 07/26/24 11:17 07/26/24 11:17 Temperature Temperature Source Temporal Pulse Rate 72 Respiratory Rate Blood Pressure 133/65 H BP Systolic 133 BP Diastolic 65 Pulse Ox 07/26/24 11:17 07/26/24 11:17 07/26/24 11:17 Temperature Temperature Source Pulse Rate 73 Respiratory Rate 20 H Blood Pressure BP Systolic BP Diastolic Pulse Ox 100 07/26/24 11:17 07/26/24 11:20 07/26/24 11:20 Temperature 99.4 F H Temperature Source Pulse Rate 73 Respiratory Rate Blood Pressure BP Systolic BP Diastolic Pulse Ox 99 07/26/24 15:27 07/26/24 15:27 07/26/24 15:32 Temperature Temperature Source Pulse Rate 89 100 Respiratory Rate Blood Pressure BP Systolic BP Diastolic Pulse Ox 100 07/26/24 15:32 07/26/24 15:37 07/26/24 15:37 Temperature Temperature Source Pulse Rate 90 Respiratory Rate Blood Pressure BP Systolic BP Diastolic Pulse Ox 100 100 07/26/24 15:55 07/26/24 15:55 07/26/24 15:59 Temperature Temperature Source Pulse Rate 107 H Respiratory Rate Blood Pressure 153/85 H BP Systolic 153 BP Diastolic 85 Pulse Ox 99 07/26/24 15:59 07/26/24 16:00 07/26/24 16:00 Temperature Temperature Source Pulse Rate 116 H 106 H Respiratory Rate Blood Pressure BP Systolic BP Diastolic Pulse Ox 100 07/26/24 16:05 07/26/24 16:05 07/26/24 16:07 Temperature Temperature Source Temporal Pulse Rate 91 Respiratory Rate Blood Pressure BP Systolic BP Diastolic Pulse Ox 100 07/26/24 16:07 07/26/24 16:07 07/26/24 16:10 Temperature 99.2 F H Temperature Source Pulse Rate 100 Respiratory Rate 16 Blood Pressure BP Systolic BP Diastolic Pulse Ox 07/26/24 16:10 07/26/24 16:15 07/26/24 16:15 Temperature Temperature Source Pulse Rate 90 Respiratory Rate Blood Pressure BP Systolic BP Diastolic Pulse Ox 100 100 Weight Weight: 291 lb 14.272 oz Body Mass Index (BMI) 45.7 Physical Exam Const alert, oriented x3, no apparent distress and healthy appearing General Appearance: cooperative; Negative for anxious HEENT normocephalic Face and Sinus: normal facial exam Eyes EOMs intact bilaterally and no scleral icterus General Eye: normal appearance of both eyes Neck full ROM and supple Lymph Lymphatic: no lymphadenopathy noted Chest Chest: abnormal inspection of the chest Resp normal respiratory effort Effort and Inspection: able to speak in complete sentences Cardio regular rate GI soft to palpation and non-tender Inspection: gravid Palpation: soft; Negative for tender Back/Spine no CVA tenderness Extremity normal to inspection, full ROM and no clubbing, cyanosis or edema General Extremity: Negative for calf tenderness or edema Skin Lesions: no lesions Rashes: no rashes Psych mental status grossly normal Labs Labs Labs: Blood Type O POSITIVE Antibody Screen NEGATIVE Hct 32.4 % (37-47) L Hgb 10.6 g/dL (12.0-15.0) L Obstetrics Ultrasound Syphilis Total Ab Non-reactive Rubella IgG Antibody Equiv (Nonreactive) Hep Bs Antigen Non-Reactive (Nonreactive) Hepatitis C Antibody Non-Reactive (Nonreactive) Chlamydia DNA (ANNETTA) Negative (Negative) N.gonorrhoeae DNA (ANNETTA) Negative (Negative) HIV 1&2 Antibody Non-Reactive (Nonreactive) Glucose 1 Hr 50 gm 140 mg/dL (70-140) Gest Glucose Tolerance MG/DL Assessment & Plan (1) Abnormal test: (2) Gestational hypertension: COMMENT: labetalol 100BID, celestone 07/24 (3) Headache in : (4) Abnormal glucose affecting : COMMENT: Passed 3hr GTT (5) Anemia affecting : COMMENT: repeat cbc in 4 weeks (6) Two vessel umbilical cord: COMMENT: twin A (7) Rubella non-immune status, antepartum: COMMENT: equivocal. offer MMR PP (8) Dichorionic diamniotic twin gestation: COMMENT: plan anesthesia consult prior to section. had general with last section. (9) Supervision of high risk , antepartum: COMMENT: PRR, , ML 09/09/23, KRISTIE Torres, Issac (10) Previous section: COMMENT: RLTCS scheduled for 08/20 @ 12 with JV desires repeat and BTO. (11) : QUALIFIERS: Weeks of gestation: 32 weeks Qualified Code(s): Z3A.32 - 32 weeks gestation of COMMENT: NIPT low risk, Carrier neg. . anatomy reviewed and needs fu views to complete PLAN: Plan After discussing the patient's diagnosis and treatment plan options, patient wishes to proceed with surgical management. I have discussed with the patient the risks, benefits, and alternatives of the procedure which include but are not limited to risks of anesthesia, bleeding, infection, possible damage to bowel, bladder, or surrounding vasculature which could lead to additional surgery to evaluate any complications. Patient agrees to procedure and wishes to proceed.
--- NOTE | 2024-07-26 16:26 | DCINST_ITS ---
Discharge Instructions Diet Discharge Diet: No restrictions DC O2, CPAP, BIPAP needs Additional Home O2 Discharge instructions: No Dressing / Incision Discharge Activity: May Not Drive (for 2 weeks or while taking narcotic pain medications.), May Shower and May Take a Tub Bath (in 7 days.) May resume sexual activity in: 4-6 weeks Weight Bearing Status: Full weight bearing Lifting Restrictions: 20 pounds Dressing / Incision Call your doctor if your incision/area has: Continuous Slow Oozing, Sudden Incre ased Bleeding, Increased Pain/ Swelling, Increased Redness and Foul Smelling Discharge Call your doctor if you observe: Fever of 101 or Higher and Using more than 1 pad per hour Suture Line Care: Avoid Pulling/Pushing and Avoid Pinching/Bending Cleanse incision/area with: Soap & Water and Keep Dressing Clean & Dry Follow Up Care Please Follow Up With: Guerita Lainez DO When: Call [phone] to make an appointment for an incision check in 1-2 weeks. Test Results: Test results from this visit will be discussed in further detail at your follow- up appointment, if applicable. Discharge Plan Admission Admit Date/Time: 07/26/24 15:41 Primary Reason for Your Visit: section Attending Provider: Malika Hensley Primary Care Provider: Negin Escalona Discharge Orders/Prescriptions Prescriptions: New ibuprofen 800 mg tablet 800 mg PO Q8H PRN (Reason: pain) Qty: 20 0RF oxycodone-acetaminophen [Percocet] 5-325 mg tablet 1 tab PO Q4H PRN (Reason: pain) 7 Days Qty: 20 0RF Rx Instructions: 1-2 tabs q 4 hrs as needed for pain Continued omeprazole 20 mg capsule,delayed release(DR/EC) 20 mg PO DAILY PNV [id number] 400 mcg-35 mg- 25 mg-5 mg tablet,chewable 1 tab PO DAILY venlafaxine [Effexor XR] 75 mg capsule,extended release 24hr 75 mg PO QAM Qty: 30 1RF cyclobenzaprine 5 mg tablet 5 mg PO QHS PRN (Reason: headache) Qty: 30 0RF Patient Comments: Pt has prescription but has not taken ferrous sulfate [FeroSul] 325 mg (65 mg iron) tablet 325 mg PO DAILY labetalol 100 mg tablet 100 mg PO BID Qty: 60 2RF ondansetron 4 mg tablet,disintegrating 4 mg PO Q6H PRN (Reason: nausea and vomiting) Qty: 30 4RF Referrals / Follow Up: Negin Escalona DO [Primary Care Provider] - Disposition Disposition (needs filled in before D/C Order can be placed): Home, Self Care
[2024-07-26] MEDS: Acetaminophen 500 MG Tablet 1000 MG PO ×2 (16:34→22:29)
[2024-07-26] MEDS: Cefazolin 3 GM in Syringe 1 EACH IV (16:57)
[2024-07-26 17:05] LABS: Syphilis Antibodies Non-reactive
[2024-07-26] MEDS: BUPIVACAINE LIPOSOME/PF 20 ML VIAL OPERA.SITE (17:45)
[2024-07-26] MEDS: Bupivacaine 0.5% PF 10 ML VIAL (17:45)
--- NOTE | 2024-07-26 17:54 | EX.PCM.OBRPT ---
Assessment & Plan (1) Abnormal test: (2) Gestational hypertension: COMMENT: labetalol 100BID, celestone 07/24 (3) Headache in : (4) Abnormal glucose affecting : COMMENT: Passed 3hr GTT (5) Anemia affecting : COMMENT: repeat cbc in 4 weeks (6) Rib pain on right side: COMMENT: CXR ordered (7) Two vessel umbilical cord: COMMENT: twin A (8) Rubella non-immune status, antepartum: COMMENT: equivocal. offer MMR PP (9) Dichorionic diamniotic twin gestation: COMMENT: plan anesthesia consult prior to section. had general with last section. (10) Supervision of high risk , antepartum: COMMENT: PRR, , ML 09/09/23, KRISTIE Torres, Issac (11) Abnormal Pap smear of cervix: COMMENT: 12/14/23- +HPV (12) Previous section: COMMENT: RLTCS scheduled for 08/20 @ 12 with JV desires repeat and BTO. (13) Anxiety and depression: (14) : QUALIFIERS: Weeks of gestation: 32 weeks Qualified Code(s): Z3A.32 - 32 weeks gestation of COMMENT: NIPT low risk, Carrier neg. . anatomy reviewed and needs fu views to complete (15) PCOS (polycystic ovarian syndrome): (16) Morbid obesity with BMI of 45.0-49.9, adult: COMMENT: 48 at [facility] at 34 weeks Maternal Data Information ML Calculator Estimated Delivery Date Method Current WG Current Estimate 09/09/24 LMP (Certain) 33w 4d Other Estimates 09/07/24 Ultrasound #1 33w 6d # 2 Operative Report (OB) Cecarean Details Procedure Type: tubal ligation Date of Procedure: 07/26/24 Procedure Start Time: 17:09 Procedure Stop Time: 08:02 Pre-Operative Diagnosis: Other (abnormal testing of baby A, 33 y/o @ 33 weeks 4 days, di/di twins, history of prior section ) Other Pre-Operative diagnosis: baby A with a 2 vessel chord and polyhydramnios Post-Operative Diagnosis: Same as Pre-operative diagnosis Classification: PATRICK Type of Anesthesia: Spinal Antibiotic Given: Ancef 3 grams IV x1 Drain: Hurst to straight drain Estimated Blood Loss: 700cc Findings Description of surgery: The patient is a 33 y/o @ 33 weeks 4 days who presented for testing after a fall. Baby A had a bpp of 4/10 , baby B was 8/10. The decision was made to proced with a repeat and bilateral salpingectomy. Spinal anesthesia was placed without difficulty. Hurst catheter was placed. The patient was placed in the dorsal supine position with leftward tilt. Patient was prepped and draped in the normal sterile fashion. Pfannenstiel skin incision was made with the scalpel and carried through to the underlying layer of fascia with the scalpel. Fascia was nicked in the midline and the incision extended laterally. The rectus bellies were dissected off superiorly and inferiorly with out complication both sharply and bluntly. The peritoneum was entered digitally. The incision was stretched and a low transverse uterine incision was made with the scalpel. The infant's head was delivered atraumatically followed by the anterior and posterior shoulders without complication the rest of the infant delivered. The cord was clamped and cut and the was handed off to awaiting nurse. The placenta was delivered spontaneously immediately following and was noted to be intact and have a three-vessel cord. The second water bag was opened with a Allis clamp and baby B was also delivered vertex. The second placenta was also delivered without difficulty. The uterus was exteriorized cleared of all clots and debris, and the incision was closed in a double layer closure using #1 Monocryl. The ovaries and fallopian tubes were noted to be within normal limits. The right fallopian tube was grasped with [place] clamps and the underlying mesosalpinx was cauterized and cut to the level of the cornua using a LigaSure device. The same procedure was performed on the left side. The uterus was returned to the maternal abdomen and gutters were cleared of all clots and debris. The peritoneum was closed with 3-0 Monocryl in a running fashion. The fascia and rectus muscles were injected with a solution of Exparel and bupivacaine solution. Fascia was closed with 0 PDS in a running fashion. Subcutaneous tissue was copiously irrigated and the skin was closed with 3-0 Monocryl in a subcuticular fashion. Mepilex dressing was applied without complication. Patient was taken to recovery in stable condition. I Surgical findings: Viable male di/di twins normal uterus tubes and ovaries Presentation: Vertex Amniotic Membrane Rupture Type: Artificial Amniotic Fluid Description: Clear Placental Delivery Description: Expressed Placenta Disposition: [facility] Specimen collected: Yes Description of specimen(s) removed: placenta Cord Vessel Description: 2 Vessels Cord Entanglement: None Cord Gases: ABG and VBG Infant A gender: Male (1 minute): 1 (5 minute): 7 Delayed Cord Clamping: No Panel Maker hand cutter: Yes [employer]: Bib Segovia Tasks completed by first press operator: Closing, Hemostasis: Clamp, Hemostasis: Tie and Retracting Additional offset press assistant?: No Complications Complications: No Baby B Information Amniotic Membrane Rupture Type: Artificial Presentation: Complete Breech (Then converted to vertex) Operative Information Mode of Delivery: Cord Vessel Description: 3 Vessels Cord Entanglement: None Cord Gases: ABG and VBG B gender: Male Delayed Cord Clamping: No Admit VTE Documentation VTE Present on Admission: No VTE Mechan Device Prophylaxis: SCD's VTE Pharm Prophylaxis Ordered: Yes Multi Select Codes Urinary/Genital Urinary/Genital CPT Codes: 57951 Delivery [facility]
[2024-07-26] MEDS: Oxytocin 15 Units/NS 250ml 15 UNITS/250 ML IV.SOLN 83 UNITS IV (18:35)
[2024-07-26] MEDS: Ketorolac 30 MG/ML Syringe IV (19:11)
--- NOTE | 2024-07-26 20:41 | FALS_PTH ---
PATIENT: CHUCK SOL LOC: WP U#:[id number] AGE/SX: 33/F ROOM: WP003 RE07/26/[address]: Dr. Guerita Lainez DO : 1990 BED: 1 DIS: 07/29/2024 SPEC #: [id number] RECD: 07/26/24 20:47 STATUS: NELSON STRATTONTyler #: [id number] CECY: 07/26/24 20:[address]: Guerita Lainez DEPT: SURGICAL PATHOLOGY RECD BY: Darell Banks ENTERED: 07/29/24 07:46 SP TYPE: FALL TUBES OTHR DR: Dr. Negin Escalona DO Tissues: Fallopian tube Procedures: Surgery Specimen Level II HEADER OPERATION: Tubal ligation PRE-OP DIAGNOSIS: DI DI twins TISSUE SUBMITTED: Bilateral fallopian tubes - stitch in right MICROSCOPIC DIAGNOSIS Right fallopian tube, salpingectomy: Complete cross sections of fallopian tube with no pathologic change. Left fallopian tube, salpingectomy: Complete cross sections of fallopian tube with no pathologic change. AM: 07/30/2024 MICROSCOPIC DESCRIPTION Slides are reviewed. GROSS DESCRIPTION Received in fixative is one container labeled with the patient's name and designated bilateral fallopian tubes - stich on right. The specimen consists of two fallopian tubes with an average length of 4.5 cm and has an average diameter of 1.0 cm. Both fallopian tubes have normal fimbriated ends. No mass lesions are identified. Line Installer Repairer sections are submitted in two cassettes as follows: 1 - right fallopian tube, 2 - left fallopian tube. / AM: 07/29/2024 TC:4 CPT: 53455 x2
[2024-07-27] VITALS (7 sets, daily range): BP systolic 107–142; BP diastolic 61–78; PULSE 73–102; RESP 16; TEMP 36.6–36.8; O2SAT 96–98
[2024-07-27] MEDS: 0.9% Saline Lock 10 ML Syringe IV (01:23)
[2024-07-27] MEDS: Ketorolac 30 MG/ML Syringe IV ×3 (01:23→12:50)
[2024-07-27] MEDS: Acetaminophen 500 MG Tablet 1000 MG PO ×4 (04:49→23:08)
[2024-07-27] MEDS: Enoxaparin 40 MG/0.4 ML Syringe SC (04:51)
[2024-07-27 05:18] LABS: Hematocrit 26.6 % (37-47); Hemoglobin 8.7 g/dL (12.0-15.0); Mean Corp Hgb Conc 32.7 g/dL (32-36); Mean Corpuscular Hgb 26.2 pg (27.0-32.0); Mean Corpuscular Volume 80.1 fL (81-99); Mean Platelet Vol. 9.9 fl (6.2-12.0); Platelet Count 174 K/mm3 (150-450); RBC Distribution Width CV 12.7 % (11.6-14.6); RBC Distribution Width SD 36.2 fl (35.1-43.9); Red Blood Count 3.32 M/mm3 (4.2-5.4); White Blood Count 12.1 K/mm3 (4.4-11.0)
--- NOTE | 2024-07-27 08:09 | PN.OBGYN_ITS ---
Subjective Subjective Patient doing well without complaints. Tolerating PO. Ambulating and voiding without difficulty. Feeding well. Denies chest pain, shortness of breath, calf pain/swelling, fevers, chills, lightheadedness. Objective Data Objective Data Vital Signs: Vital Signs Temp Pulse Resp BP Pulse Ox O2 Del Method 98 F 85 16 107/64 96 Room Air 07/27/24 07:51 07/27/24 07:51 07/27/24 07:51 07/27/24 07:51 07/27/24 07:51 07/27/24 07:51 Oxygen Delivery Method Room Air Weight: 291 lb 14.272 oz Body Mass Index (BMI) 45.7 Intake & Output: Intake and Output for Last 24 Hours 07/25/24 07/26/24 07/27/24 23:59 23:59 23:59 Intake Total 1279 / 1279 Output Total 1000 / 1000 300 / 300 Balance 279 / 279 -300 / -300 Lab / Micro Data Attestation: I reviewed the patient's lab results. 07/27/24 05:00 Labs: Laboratory Results - last 24 hr 07/26/24 15:50: WBC 12.9 H, RBC 4.02 L, Hgb 10.6 L, Hct 32.4 L, MCV 80.6 L, MCH 26.4 L, MCHC 32.7, RDW Std Deviation 36.4, RDW Coeff of Shola 12.7, Plt Count 236, MPV 9.9, Immature Gran % (Auto) 1.800 H, Neut % (Auto) 81.1 H, Lymph % (Auto) 10.3 L, Benzie % (Auto) 6.6, Eos % (Auto) 0.0, Baso % (Auto) 0.2, Absolute Neuts (auto) 10.4 H, Absolute Lymphs (auto) 1.33, Nucleated RBC % 0, Syphilis Total Ab Non-reactive, Blood Type O POSITIVE, Antibody Screen NEGATIVE 07/27/24 05:00: WBC 12.1 H, RBC 3.32 L, Hgb 8.7 L, Hct 26.6 L, MCV 80.1 L, MCH 26.2 L, MCHC 32.7, RDW Std Deviation 36.2, RDW Coeff of Shola 12.7, Plt Count 174, MPV 9.9 ROS Constitutional Constitutional: Reports systems reviewed and no addt'l complaints, except as documented; Denies anorexia or headache(s) Cardiovascular Cardiovascular: Reports systems reviewed and no addt'l complaints, except as documented; Denies dizziness, dyspnea, nausea or tachypnea Respiratory/Chest Respiratory/Chest: Reports systems reviewed and no addt'l complaints, except as documented; Denies cough, dyspnea, shortness of breath at rest or tachypnea Gastrointestinal Gastrointestinal: Reports systems reviewed and no addt'l complaints, except as documented; Denies abdominal pain, constipation or nausea Genitourinary Genitourinary: Reports systems reviewed and no addt'l complaints, except as documented; Denies burning urination, difficulty urinating, dysuria, urinary frequency or urinary incontinence Musculoskeletal Musculoskeletal: Reports systems reviewed and no addt'l complaints, except as documented Integumentary Integumentary: Reports systems reviewed and no addt'l complaints, except as documented Neurologic Neurologic: Reports systems reviewed and no addt'l complaints, except as documented; Denies abnormal speech, dizziness or headache(s) Psychiatric Psychiatric: Reports systems reviewed and no addt'l complaints, except as documented Endocrine Endocrinology: Reports systems reviewed and no addt'l complaints, except as documented Hematologic/Lymphatic Hematologic/Lymphatic: Reports systems reviewed and no addt'l complaints, except as documented Physical Exam Const alert, oriented x3 and no apparent distress Neck full ROM Resp normal respiratory effort, normal air movement and no retractions Effort and Inspection: able to speak in complete sentences and symmetric chest movement GI soft to palpation Inspection: incision intact Bladder / Kidney Exam: bladder normal to palpation Uterus Palpation: uterus fundus firm Extremity normal to inspection and full ROM Psych mental status grossly normal, thought process normal and cooperative Assessment & Plan (1) Status post section: PLAN: s/p LTCS PPD # 1 1. routine post care 2. breast feeding- support given 3. rh positive 4. rubella immune (2) Abnormal test: (3) Gestational hypertension: COMMENT: labetalol 100BID, celestone 07/24 (4) Headache in : (5) Abnormal glucose affecting : COMMENT: Passed 3hr GTT (6) Anemia affecting : COMMENT: repeat cbc in 4 weeks (7) Rib pain on right side: COMMENT: CXR ordered (8) Two vessel umbilical cord: COMMENT: twin A (9) Rubella non-immune status, antepartum: COMMENT: equivocal. offer MMR PP (10) Dichorionic diamniotic twin gestation: COMMENT: plan anesthesia consult prior to section. had general with last section. (11) Supervision of high risk , antepartum: COMMENT: PRR, , ML 09/09/23, PC Melissa, Issac (12) Abnormal Pap smear of cervix: COMMENT: 12/14/23- +HPV (13) Previous section: COMMENT: RLTCS scheduled for 08/20 @ 12 with JV desires repeat and BTO. (14) COVID: COMMENT: asa 81mg daily (15) Anxiety and depression: (16) : QUALIFIERS: Weeks of gestation: 32 weeks Qualified Code(s): Z 3A.32 - 32 weeks gestation of COMMENT: NIPT low risk, Carrier neg. . anatomy reviewed and needs fu views to complete (17) PCOS (polycystic ovarian syndrome): (18) Morbid obesity with BMI of 45.0-49.9, adult: COMMENT: 48 at NOB-NSTs at 34 weeks (19) Scoliosis: COMMENT: was put under general anesthesia. Anesthesia consult scheduled for 07/08 @ 11 Charges/Coding Multi Select Codes Urinary/Genital Urinary/Genital CPT Codes: No Charge
[2024-07-27] MEDS: Venlafaxine XR 75 MG Capsule PO (10:56)
[2024-07-27] MEDS: Senna/Docusate Sodium 1 Tablet PO (10:56)
[2024-07-27] MEDS: Pantoprazole Sodium 20 MG Tablet PO (10:57)
[2024-07-27] MEDS: Ferrous Sulfate 325 MG Tablet PO (12:01)
[2024-07-27] MEDS: MEASLES,MUMPS,RUBELLA VACC/PF 0.5 ML SC (12:02)
[2024-07-27] MEDS: SimETHICONE 80 MG Chewable Tablet PO (17:17)
[2024-07-27] MEDS: Ondansetron 8 MG Tablet 4 MG PO (17:49)
[2024-07-27] MEDS: Labetalol 100 MG Tablet PO (18:33)
[2024-07-27] MEDS: Ibuprofen 600 MG Tablet PO (20:20)
[2024-07-28] MEDS: Ibuprofen 600 MG Tablet PO ×4 (02:32→19:47)
[2024-07-28 02:35] VITALS: BP 123/57; PULSE 93; RESP 16; TEMP 36.8; O2SAT 97
[2024-07-28] MEDS: Acetaminophen 500 MG Tablet 1000 MG PO ×4 (05:29→23:15)
[2024-07-28] MEDS: Enoxaparin 40 MG/0.4 ML Syringe SC (05:32)
[2024-07-28] MEDS: Labetalol 100 MG Tablet PO ×2 (07:18→18:09)
[2024-07-28 08:00] VITALS: BP 122/63; PULSE 93; RESP 16; TEMP 36.6; O2SAT 97
[2024-07-28] MEDS: Pantoprazole Sodium 20 MG Tablet PO (10:28)
[2024-07-28] MEDS: Venlafaxine XR 75 MG Capsule PO (10:28)
--- NOTE | 2024-07-28 11:17 | PN.OBGYN_ITS ---
Subjective Subjective Patient doing well without complaints. Tolerating PO. Ambulating and voiding without difficulty. Feeding well. Denies chest pain, shortness of breath, calf pain/swelling, fevers, chills, lightheadedness. Objective Data Objective Data Vital Signs: Vital Signs Temp Pulse Resp BP Pulse Ox O2 Del Method 97.9 F 93 16 122/63 H 97 Room Air 07/28/24 08:00 07/28/24 08:00 07/28/24 08:00 07/28/24 08:00 07/28/24 08:00 07/28/24 08:00 Oxygen Delivery Method Room Air Weight: 291 lb 14.272 oz Body Mass Index (BMI) 45.7 Intake & Output: Intake and Output for Last 24 Hours 07/26/24 07/27/24 07/28/24 23:59 23:59 23:59 Intake Total 1279 / 1279 Output Total 1000 / 1000 300 / 300 Balance 279 / 279 -300 / -300 Lab / Micro Data Attestation: I reviewed the patient's lab results. 07/27/24 05:00 Radiography Diagnostic Testing: Radiology Impression Biophysical Profile Ultrasound 07/26/24 12:13 IMPRESSION: Live twin intrauterine . Fetus A has a biophysical profile score of 4/8. Fetus B has a biophysical profile score of 6/8. Electronically Signed: Akbar Ferguson MD at 23:33 EST , ROS Constitutional Constitutional: Reports systems reviewed and no addt'l complaints, except as documented; Denies anorexia or headache(s) Cardiovascular Cardiovascular: Reports systems reviewed and no addt'l complaints, except as documented; Denies dizziness, dyspnea, nausea or tachypnea Respiratory/Chest Respiratory/Chest: Reports systems reviewed and no addt'l complaints, except as documented; Denies cough, dyspnea, shortness of breath at rest or tachypnea Gastrointestinal Gastrointestinal: Reports systems reviewed and no addt'l complaints, except as documented; Denies abdominal pain, constipation or nausea Genitourinary Genitourinary: Reports systems reviewed and no addt'l complaints, except as documented; Denies burning urination, difficulty urinating, dysuria, urinary frequency or urinary incontinence Musculoskeletal Musculoskeletal: Reports systems reviewed and no addt'l complaints, except as documented Integumentary Integumentary: Reports systems reviewed and no addt'l complaints, except as documented Neurologic Neurologic: Reports systems reviewed and no addt'l complaints, except as documented; Denies abnormal speech, dizziness or headache(s) Psychiatric Psychiatric: Reports systems reviewed and no addt'l complaints, except as documented Endocrine Endocrinology: Reports systems reviewed and no addt'l complaints, except as documented Hematologic/Lymphatic Hematologic/Lymphatic: Reports systems reviewed and no addt'l complaints, except as documented Physical Exam Const alert, oriented x3 and no apparent distress Neck full ROM Resp normal respiratory effort, normal air movement and no retractions Effort and Inspection: able to speak in complete sentences and symmetric chest movement GI soft to palpation Bladder / Kidney Exam: bladder normal to palpation Uterus Palpation: uterus fundus firm Extremity normal to inspection and full ROM Psych mental status grossly normal, thought process normal and cooperative Assessment & Plan (1) Status post section: PLAN: s/p LTCS PPD # 2 1. routine post care 2. breast feeding- support given 3. rh positive 4. rubella immune (2) Abnormal test: (3) Gestational hypertension: COMMENT: labetalol 100BID, celestone 07/24 (4) Headache in : (5) Abnormal glucose affecting : COMMENT: Passed 3hr GTT (6) Anemia affecting : COMMENT: repeat cbc in 4 weeks (7) Rib pain on right side: COMMENT: CXR ordered (8) Two vessel umbilical cord: COMMENT: twin A (9) Rubella non-immune status, antepartum: COMMENT: equivocal. offer MMR PP (10) Dichorionic diamniotic twin gestation: COMMENT: plan anesthesia consult prior to section. had general with last section. (11) Supervision of high risk , antepartum: COMMENT: PRR, , ML 09/09/23, KRISTIE Torres, Issac (12) Abnormal Pap smear of cervix: COMMENT: 12/14/23- +HPV (13) Previous section: COMMENT: RLTCS scheduled for 08/20 @ 12 with JV desires repeat and BTO. (14) COVID: COMMENT: asa 81mg daily (15) Anxiety and depression: (16) : QUALIFIERS: Weeks of gestation: 32 weeks Qualified Code(s): Z 3A.32 - 32 weeks gestation of COMMENT: NIPT low risk, Carrier neg. . anatomy reviewed and needs fu views to complete (17) PCOS (polycystic ovarian syndrome): (18) Morbid obesity with BMI of 45.0-49.9, adult: COMMENT: 48 at NOB-NSTs at 34 weeks (19) Scoliosis: COMMENT: was put under general anesthesia. Anesthesia consult scheduled for 07/08 @ 11 Charges/Coding Multi Select Codes Urinary/Genital Urinary/Genital CPT Codes: No Charge
[2024-07-28] MEDS: Ferrous Sulfate 325 MG Tablet PO (11:29)
--- NOTE | 2024-07-28 13:50 | CASEMGMT ---
Social Work Assessment Labor and Delivery Unit Patient Address: [address] [place] [address] Phone number: Date of Referral: 07/26/2024 Time of Referral:? 19:30 Referred By: Guerita Lainez Date of Intervention: 07/28/2024? Time of Intervention: 13:51 Reason for Referral:? Anxiety, depression, PPD and pre-term twin delivery. History obtained from: Medical records and mother of baby (MARY). ? Household composition: MOB (Mariana, age 32), FOB (Issac Serra, age 39), daughter Melissa, age 11 and twin sons Nasir (baby A) and Toney (baby B), both born premature via on 07/26/24. Patient's parent/guardian status: MARY and FOB have been together for 12 years and for 7 years.? MOB reported she just did not want to get her last name changed.? Newborns will be given the last name of Maryse. Medical History: MARY received PNC beginning at 8 weeks and 3 days and visits were observed to be routine. : 2, Para, now 3 due to twin /. Apgars: Baby A: 1,7 and 8. Baby B: 7 and 8. Weight: Baby A: 4lbs, 2 oz, Baby B: 4lbs, 9oz. Casing Material Weigher: Yet to be determined but will be through [facility] in [place]. MARY reported she is going to try and get the same consultant dietitian her 11yo has who is Dr. Maria Elena Espino. Educational Status: MARY denied any issues or concerns with reading or writing with herself or the FOB. MARY has a Bachelor?s degree in Psychology and the FOB has an Associates degree in Automotive. Financial Status: MARY reported the household income is sufficient to meet the needs of her family at this time. 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 The FOB is currently employed multimedia author as an database engineer. Supplies: MARY reported she has all of the supplies she needs for baby at this time including but not limited to: Car seats, a twin bassinet, and twin pack-n-play, diapers, bottles, formula and clothing. Childcare/Caregiver(s):? MARY reported that both she and the FOB will provide care for newborns. MARY reported that she works multimedia author from home and will be able to keep newborns home with her while she works.? MOB reported a high level of flexibility with her place of employment. Transportation:? MOB reported she and the FOB are both licensed drivers with reliable vehicles to take newborns to and from all medical appointments. No transportation issues identified. Programs/Agencies Involved: MOB denied any current programs or agencies involved at this time. ???MOB reported [facility] used to be involved with Melissa however MOB and FOB?s income exceeds eligibility for [place] at this time. Children Services/Legal Issues:? Denied. Behavioral Health Issues: ??Mental Health History: MARY has a history of PPD, depression and anxiety. MOB reported symptoms are currently being treated with medications that MOB described as effective. MARY had originally gone off of her medications once she found out she was however went back on half the dose at 27 weeks of .? MOB will schedule appointment with her providers to discuss current dosage levels and to see if any need to be resumed at dosages pre-. MARY is not currently involved with a counselor or a psychiatrist and denied the need for either at this time.? MOB reported she struggles with anxiety more than anything but feels it is currently managed. MOB aware of community resources if needed. ?Substance Use History: Denied.? Family History:? MOB identified her aunts, cousins and dad have been diagnosed with bipolar, depression and anxiety. ?Drug Screens: None obtained during this admission. Family/Social Stressors:? MOB reported that the 11yo daughter Melissa has been having a hard time being away from her and the FOB so the FOB has been trying to go home and be with her in between hospital visits with MOB and newborns.? FOB and Melissa at hospital earlier on this date. Additional stressors include newborns being in the SCN and the possibility of newborns having to stay in the SCN for another month according to the MOB and not knowing how long she will be able to remain in hotel status/living 30 minutes away. Support Systems: Ample. MARY described the FOB as a support as well as her parents and the FOB?s mother. ?? Depression/Shaken Baby/Safe Sleeping: tin worker provided verbal and written education on PPD, Safe Sleeping and Shaken Baby.? MOB verbalized an understanding. ?MOB had previous PPD with first-born however stated she also wasn?t on any medication at that time the way she is now. ?? ASSESSMENT:? MARY provided consent to social work visit. At the time of visit, FOB and their daughter had just left and the MOB was in the room alone.? MOB was engaged, and her effort was good. Newborns were in SNC at the time of the visit.? MOB seemed to enjoy talking about newborns and began talking about both newborns being able to now take a bottle, improved respiratory and being off of the CPAP machine. MOB reported she has been visiting newborns and being present for feedings. MOB reported feeing safe and denied any previous or current domestic violence. MOB denied any drug or alcohol abuse with either herself or the FOB and also denied any unmanaged/untreated mental health concerns with either herself or the FOB. [employer]spring also provided a resource for Mothers of Multiples which MOB voiced an appreciation for. Safe Plan of Care for related to substance use: N/A; not needed. ? PLAN:? Baby to be discharged home.? tin worker also provided written information on depression, depression resources and Help Me Grow. ?No other services requested or indicated. Guerita Batres, MEMS PROCESS ENGINEER, CALL PERSON 07/28/2024
[2024-07-28 14:01] VITALS: BP 138/87; PULSE 100; RESP 16; TEMP 36.3; O2SAT 98
[2024-07-28 19:27] VITALS: BP 94/50; PULSE 98; RESP 16; TEMP 36.3; O2SAT 98
[2024-07-29 02:03] VITALS: BP 102/67; PULSE 86; RESP 16; TEMP 36.2; O2SAT 96
[2024-07-29] MEDS: Ibuprofen 600 MG Tablet PO ×3 (02:05→12:56)
[2024-07-29] MEDS: Enoxaparin 40 MG/0.4 ML Syringe SC (06:25)
[2024-07-29] MEDS: Acetaminophen 500 MG Tablet 1000 MG PO ×2 (06:26→12:56)
[2024-07-29] MEDS: Labetalol 100 MG Tablet PO ×2 (06:30→18:53)
[2024-07-29 06:31] VITALS: BP 117/58; PULSE 83
[2024-07-29 06:32] LABS: Pathology Specimen OB SEE PATHOLOGY REPORT
[2024-07-29 07:32] VITALS: BP 149/85; PULSE 89; RESP 16; TEMP 36.2; O2SAT 98
[2024-07-29] MEDS: Senna/Docusate Sodium 1 Tablet PO (07:43)
[2024-07-29] MEDS: Venlafaxine XR 75 MG Capsule PO (07:44)
[2024-07-29] MEDS: Pantoprazole Sodium 20 MG Tablet PO (07:44)
[2024-07-29 09:24] VITALS: BP 122/79
--- NOTE | 2024-07-29 11:58 | PN.OBGYN_ITS ---
Subjective Subjective Patient doing well without complaints. Tolerating PO. Ambulating and voiding without difficulty. Feeding well. Denies chest pain, shortness of breath, calf pain/swelling, fevers, chills, lightheadedness. Objective Data Objective Data Vital Signs: Vital Signs Temp Pulse Resp BP Pulse Ox O2 Del Method 97.1 F L 89 16 122/79 H 98 Room Air 07/29/24 07:32 07/29/24 07:32 07/29/24 07:32 07/29/24 09:24 07/29/24 07:32 07/29/24 07:32 Oxygen Delivery Method Room Air Weight: 291 lb 14.272 oz Body Mass Index (BMI) 45.7 Intake & Output: Intake and Output for Last 24 Hours 07/27/24 07/28/24 07/29/24 23:59 23:59 23:59 Output Total 300 / 300 Balance -300 / -300 Lab / Micro Data Attestation: I reviewed the patient's lab results. 07/27/24 05:00 ROS Constitutional Constitutional: Reports systems reviewed and no addt'l complaints, except as documented; Denies anorexia or headache(s) Cardiovascular Cardiovascular: Reports systems reviewed and no addt'l complaints, except as documented; Denies dizziness, dyspnea, nausea or tachypnea Respiratory/Chest Respiratory/Chest: Reports systems reviewed and no addt'l complaints, except as documented; Denies cough, dyspnea, shortness of breath at rest or tachypnea Gastrointestinal Gastrointestinal: Reports systems reviewed and no addt'l complaints, except as documented; Denies abdominal pain, constipation or nausea Genitourinary Genitourinary: Reports systems reviewed and no addt'l complaints, except as documented; Denies burning urination, difficulty urinating, dysuria, urinary frequency or urinary incontinence Musculoskeletal Musculoskeletal: Reports systems reviewed and no addt'l complaints, except as documented Integumentary Integumentary: Reports systems reviewed and no addt'l complaints, except as documented Neurologic Neurologic: Reports systems reviewed and no addt'l complaints, except as documented; Denies abnormal speech, dizziness or headache(s) Psychiatric Psychiatric: Reports systems reviewed and no addt'l complaints, except as documented Endocrine Endocrinology: Reports systems reviewed and no addt'l complaints, except as documented Hematologic/Lymphatic Hematologic/Lymphatic: Reports systems reviewed and no addt'l complaints, except as documented Physical Exam Const alert, oriented x3 and no apparent distress Neck full ROM Resp normal respiratory effort, normal air movement and no retractions Effort and Inspection: able to speak in complete sentences and symmetric chest movement GI soft to palpation Inspection: incision intact Bladder / Kidney Exam: bladder normal to palpation Uterus Palpation: uterus fundus firm Extremity normal to inspection and full ROM Psych mental status grossly normal, thought process normal and cooperative Assessment & Plan (1) Status post section: PLAN: s/p LTCS PPD # 3 1. routine post care 2. breast feeding- support given 3. rh positive 4. rubella immune 5. Discharge home (2) Abnormal test: (3) Gestational hypertension: COMMENT: labetalol 100BID, celestone 07/24 (4) Headache in : (5) Abnormal glucose affecting : COMMENT: Passed 3hr GTT (6) Anemia affecting : COMMENT: repeat cbc in 4 weeks (7) Rib pain on right side: COMMENT: CXR ordered (8) Two vessel umbilical cord: COMMENT: twin A (9) Rubella non-immune status, antepartum: COMMENT: equivocal. offer MMR PP (10) Dichorionic diamniotic twin gestation: COMMENT: plan anesthesia consult prior to section. had general with last section. (11) Supervision of high risk , antepartum: COMMENT: PRR, , ML 09/09/23, KRISTIE Torres, Issac (12) Abnormal Pap smear of cervix: COMMENT: 12/14/23- +HPV (13) Previous section: COMMENT: RLTCS scheduled for 08/20 @ 12 with JV desires repeat and BTO. (14) COVID: COMMENT: asa 81mg daily (15) Anxiety and depression: (16) : QUALIFIERS: Weeks of gestation: 32 weeks Qualified Code(s): Z 3A.32 - 32 weeks gestation of COMMENT: NIPT low risk, Carrier neg. . anatomy reviewed and needs fu views to complete (17) PCOS (polycystic ovarian syndrome): (18) Morbid obesity with BMI of 45.0-49.9, adult: COMMENT: 48 at NOB-NSTs at 34 weeks (19) Scoliosis: COMMENT: was put under general anesthesia. Anesthesia consult scheduled for 07/08 @ Charges/Coding Multi Select Codes Urinary/Genital Urinary/Genital CPT Codes: No Charge
--- NOTE | 2024-07-29 11:59 | DS.PCM_ITS ---
Providers Date of Admission: 07/26/24 Date of Discharge: 07/29/24 Primary Care Physician: Dr. Negin Escalona DO Reason For Visit: REPEAT Diagnosis Discharge Diagnosis (1) Status post section: Status: Acute Code(s): Z98.891 - History of uterine scar from previous surgery Plan: s/p LTCS PPD # 3 1. routine post care 2. breast feeding- support given 3. rh positive 4. rubella immune 5. Discharge home (2) Abnormal test: Status: Acute Code(s): O28.9 - Unspecified abnormal findings on screening of mother (3) Gestational hypertension: Status: Acute Code(s): O13.9 - Gestational [-induced] hypertension without significant proteinuria, unspecified trimester (4) Headache in : Status: Acute Code(s): O26.899 - Other specified related conditions, unspecified trimester; R51.9 - Headache, unspecified (5) Abnormal glucose affecting : Status: Acute Code(s): O99.810 - Abnormal glucose complicating (6) Anemia affecting : Status: Acute Code(s): O99.019 - Anemia complicating , unspecified trimester (7) Rib pain on right side: Status: Acute Code(s): R07.81 - Pleurodynia (8) Two vessel umbilical cord: Status: Acute Code(s): Q27.0 - Congenital absence and hypoplasia of umbilical artery (9) Rubella non-immune status, antepartum: Status: Acute Code(s): O09.899 - Supervision of other high risk pregnancies, unspecified trimester; Z28.39 - Other underimmunization status (10) Dichorionic diamniotic twin gestation: Status: Acute Code(s): O30.049 - Twin , dichorionic/diamniotic, unspecified trimester (11) Supervision of high risk , antepartum: Status: Acute Code(s): O09.90 - Supervision of high risk , unspecified, unspecified trimester (12) Abnormal Pap smear of cervix: Status: Acute Code(s): R87.619 - Unspecified abnormal cytological findings in specimens from cervix uteri (13) Previous section: Status: Acute Code(s): Z98.891 - History of uterine scar from previous surgery (14) COVID: Status: Acute Code(s): U07.1 - COVID-19 (15) Anxiety and depression: Status: Acute Code(s): F41.9 - Anxiety disorder, unspecified; F32.A - Depression, unspecified (16) : Status: Acute Code(s): Z34.90 - Encounter for supervision of normal , unspecified, unspecified trimester Qualifiers: Weeks of gestation: 32 weeks Qualified Code(s): Z3A.32 - 32 weeks gestation of (17) PCOS (polycystic ovarian syndrome): Status: Acute Code(s): E28.2 - Polycystic ovarian syndrome (18) Morbid obesity with BMI of 45.0-49.9, adult: Status: Acute Code(s): E66.01 - Morbid (severe) obesity due to excess calories; Z68.42 - Body mass index [BMI] 45.0-49.9, adult (19) Scoliosis: Status: Acute Code(s): M41.9 - Scoliosis, unspecified Medications at Discharge Home Medications PNV 153-FA 400 mcg-om3 35 mg-dha 25 mg-epa 5 mg-fish oil chew tablet 1 tab PO DAILY SUPPLEMENT 01/26/24 omeprazole 20 mg capsule,delayed release 20 mg PO DAILY GERD 01/26/24 ondansetron 4 mg disintegrating tablet 4 mg PO Q6H PRN nausea and vomiting #30 tabs 02/29/24 cyclobenzaprine 5 mg tablet 5 mg PO QHS PRN headache #30 tabs 06/19/24 venlafaxine 75 mg capsule,extended release 24 hr (Effexor XR) 75 mg PO QAM ANTI- DEPRESSANT #30 caps 06/19/24 ferrous sulfate 325 mg (65 mg iron) tablet (FeroSul) 325 mg PO DAILY SUPPLEMENT 07/08/24 labetalol 100 mg tablet 100 mg PO BID hypertension #60 tabs 07/24/24 ibuprofen 800 mg tablet 800 mg PO Q8H PRN pain #20 tabs 07/26/24 oxycodone-acetaminophen 5 mg-325 mg tablet (Percocet) 1 tab PO Q4H PRN pain 7 days #20 tabs 07/26/24 Hospital Course Operations section Procedures None Summary of Care Provided Minutes Spent on Discharge: 30 Physical Exam Const alert, oriented x3 and no apparent distress Neck full ROM Resp normal respiratory effort, normal air movement and no retractions Effort and Inspection: able to speak in complete sentences and symmetric chest movement GI soft to palpation Inspection: incision intact Bladder / Kidney Exam: bladder normal to palpation Uterus Palpation: uterus fundus Extremity normal to inspection and full ROM Psych mental status grossly normal, thought process normal and cooperative Weight / BMI Weight Weight: 291 lb 14.272 oz Body Mass Index (BMI) 45.7 ABG / Lab / Microbiology Data 07/27/24 05:00 D/C Instructions Discharge Diet: No restrictions May shower in (days): 0 May resume sexual activity in: 4-6 weeks Weight Bearing Status: Full weight bearing Call your doctor if your incision/area has: Continuous Slow Oozing, Sudden Increased Bleeding, Increased Pain/ Swelling, Increased Redness and Foul Smelling Discharge Call your doctor if you observe: Fever of 101 or Higher and Using more than 1 pad per hour Suture Line Care: Avoid Pulling/Pushing and Avoid Pinching/Bending Remove Dressing in: 1 week Cleanse incision/area with: Soap & Water and Keep Dressing Clean & Dry DC O2, CPAP, BIPAP Needs Additional Home O2 Discharge instructions: No DC home with Oxygen: No Please Follow Up With: Guerita Lainez DO When: Call [phone] to make an appointment for an incision check in 1-2 weeks. Meaningful Use Info Meaningful Use Meaningful Use Diagnoses (Choose all that apply): None applicable Ischemic Stroke Statin Dosing Therapy Reference: STATIN DOSE THERAPY REFERENCE: * Patients > 75 years receive moderate or high dose statin therapy. * Patients 75 years or YOUNGER should receive HIGH intensity statin dose unless contraindicated. You will be required to document reason for non-treatment if statin daily dose does not meet guidelines. HIGH DOSE STATIN THERAPY DAILY Atorvastatin > than or = to 40 mg Rosuvastatin > than or = to 20 mg Amlodipine + Atorvastatin > than or = to 2.5/40 mg Ezetimibe + Simvastatin 10/80 mg Simvastatin 80mg Discharge Plan Admission Admit Date/Time: 07/26/24 15:41 Primary Reason for Your Visit: section Attending Provider: Guerita Lainez Primary Care Provider: Negin Escalona Discharge Orders/Prescriptions Prescriptions: New ibuprofen 800 mg tablet 800 mg PO Q8H PRN (Reason: pain) Qty: 20 0RF oxycodone-acetaminophen [Percocet] 5-325 mg tablet 1 tab PO Q4H PRN (Reason: pain) 7 Days Qty: 20 0RF Rx Instructions: 1-2 tabs q 4 hrs as needed for pain Continued omeprazole 20 mg capsule,delayed release(DR/EC) 20 mg PO DAILY PNV [id number] 400 mcg-35 mg- 25 mg-5 mg tablet,chewable 1 tab PO DAILY venlafaxine [Effexor XR] 75 mg capsule,extended release 24hr 75 mg PO QAM Qty: 30 1RF cyclobenzaprine 5 mg tablet 5 mg PO QHS PRN (Reason: headache) Qty: 30 0RF Patient Comments: Pt has prescription but has not taken ferrous sulfate [FeroSul] 325 mg (65 mg iron) tablet 325 mg PO DAILY labetalol 100 mg tablet 100 mg PO BID Qty: 60 2RF ondansetron 4 mg tablet,disintegrating 4 mg PO Q6H PRN (Reason: nausea and vomiting) Qty: 30 4RF Referrals / Follow Up: Negin Escalona DO [Primary Care Provider] - Disposition Disposition (needs filled in before D/C Order can be placed): Home, Self Care Charges/Coding Multi Select Codes Urinary/Genital Urinary/Genital CPT Codes: No Charge
[2024-07-29] MEDS: Ferrous Sulfate 325 MG Tablet PO (12:56)
[2024-07-29 12:59] VITALS: BP 137/74; PULSE 80; RESP 16; TEMP 36.1; O2SAT 98
[2024-07-29 16:45] VITALS: BP 133/87; PULSE 94; RESP 16; TEMP 36.1; O2SAT 98
== END 2024-07-29 18:55 | disposition home or self-care (01) | DRG 785 ==
LOC: WPOUT 15:54 → WP 16:00
PROVIDERS: Admitting Provider Obstetrics & Gynecology; PCP Internal Medicine; Referring Provider Obstetrics & Gynecology; Visit Provider Obstetrics & Gynecology
DX: O28.8 Other abnormal findings on antenatal screening of mother (principal); Z37.2 Twins, both liveborn; D64.9 Anemia, unspecified; F32.A Depression, unspecified; O99.214 Obesity complicating childbirth; E66.01 Morbid (severe) obesity due to excess calories; F41.9 Anxiety disorder, unspecified; M41.9 Scoliosis, unspecified; E28.2 Polycystic ovarian syndrome; R07.89 Other chest pain; O34.211 Maternal care for low transverse scar from previous cesarean delivery; O30.043 Twin pregnancy, dichorionic/diamniotic, third trimester; O13.4 Gestational [pregnancy-induced] hypertension without significant proteinuria, complicating childbirth; O99.344 Other mental disorders complicating childbirth; Z3A.33 33 weeks gestation of pregnancy; O99.284 Endocrine, nutritional and metabolic diseases complicating childbirth; O32.1XX2 Maternal care for breech presentation, fetus 2; O69.89X1 Labor and delivery complicated by other cord complications, fetus 1; O99.892 Other specified diseases and conditions complicating childbirth; Z79.899 Other long term (current) drug therapy
CPT/HCPCS: 59025; 59050; 76815; 76819; 85025; 85027; 86780; 86850; 86900; 86901; 88302; 99221; J7120; A4216; G0378; J2405

== ENCOUNTER 2024-09-06 13:40 | Outpatient (CLI) | payer OTHER, SELFPAY ==
[2024-09-06] VITALS (12 sets, daily range): BP systolic 131–147; BP diastolic 74–88; PULSE 70–82; RESP 16; TEMP 36.2–36.4; O2SAT 100; BMI 42.7
[2024-09-06 15:00] LABS: Hematocrit 34.4 % (37-47); Hemoglobin 10.7 g/dL (12.0-15.0); Mean Corp Hgb Conc 31.1 g/dL (32-36); Mean Corpuscular Hgb 23.8 pg (27.0-32.0); Mean Corpuscular Volume 76.4 fL (81-99); Mean Platelet Vol. 9.4 fl (6.2-12.0); Platelet Count 311 K/mm3 (150-450); RBC Distribution Width CV 12.4 % (11.6-14.6); RBC Distribution Width SD 34.4 fl (35.1-43.9); White Blood Count 9.5 K/mm3 (4.4-11.0)
[2024-09-06 15:17] LABS: Protein:Creat Ratio 4788 mg/g CRE (0-200)
[2024-09-06 15:38] LABS: AST(SGOT) 17 U/L (15-37); Alanine Aminotransfer ALT/SGPT 22 U/L (13-56); Creatinine, Serum 0.72 mg/dL (0.55-1.02); EST Glomerular Filtration Rate 99 mL/min (>60); Est Glom Filt Rate - Afr Amer 119 mL/min (>60); Estimated Creatinine Clearance 153.23 ml/min; LDH 201 U/L (84-246); Uric Acid 5.8 mg/dL (2.6-6.0)
--- NOTE | 2024-09-06 15:40 | US_ITS ---
INDICATION: RUQ pain EXAMINATION: Ultrasound US Abdomen Limited (quadrant) TECHNIQUE: [place]mond scale and color doppler imaging was performed of the right upper quadrant. COMPARISON: No relevant prior comparison study available FINDINGS: LIVER: The liver has normal configuration, measuring 17.9 cm in maximal length. Normal echogenicity. Normal directional blood flow. No focal hepatic lesion. There is no free fluid. GALLBLADDER AND BILIARY TREE: Patient is status post cholecystectomy. No abnormal fluid collections. Common bile duct measures 2.8 mm. Songraphic Sanderson''s sign: PANCREAS: Pancreas is partially obscured due to shadowing gas. No focal abnormality noted. RIGHT kidney: RIGHT kidney has normal configuration, no solid or cystic masses or hydronephrosis. RIGHT kidney dimension: 9.8 x 6.0 x 4.7 cm. Cortical thickness estimated at 1.1 cm.. US/Abdomen Limited IMPRESSION: 1. Borderline hepatomegaly. No evidence of hepatic masses or ductal dilatation. 2. Status post cholecystectomy. No ductal dilatation. 3. Normal sonographic appearance of the RIGHT kidney. 4. No abnormal fluid collections. Electronically Signed: Silvio Ojeda MD at 21:13 EST ,
[2024-09-06] MEDS: Acetaminophen 500 MG Tablet 1000 MG PO (16:19)
[2024-09-06] MEDS: Labetalol 100 MG Tablet PO (16:20)
[2024-09-06 17:00] LABS: Protein, Urine (Random) < 6.0 mg/dL (<11.9)
--- NOTE | 2024-09-06 20:22 | NURSING ---
Dr Sterling notified via telephone per this RN of patient requesting to go home at this time. US results still pending but escalated to STAT. Orders received to discharge home at this time. Provider to call with results if abnormal. Patient to schedule appointment for next or Monday with RN to check BP in office. Patient given verbal and written discharge instructions. Denies further questions or concerns. Leaving unit at 2014 by self via ambulation.
--- NOTE | 2024-09-07 04:51 | OB.TRI.NOTE ---
HPI - General HPI Narrative CHUCK SOL, is a 33 y/o who presents to L&D to rule out post pre-eclampsia. She is 6 weeks post op from a section for twins. She was seen in my office and initially her bp's were 160/100 and 150/90. After resting for over 10 minutes her bp was 140's/90's.The patient states that there have been intestinal problems with one of the babies and she has not been taking great care of herself. She has headaches on and off that she relates to fatigue. The patient was sent to triage for labs to rule out pre-e. [facility] Medical History hemorrhage Gestational HTN Anesthesia complication Scoliosis Depression Anxiety Anemia Migraine headache Gastric reflux Non-smoker Seasonal allergies Congenital duplication of colon Home Medications ?Medication ?Instructions ?Recorded ?Last Taken ?Type PNV 153-FA 400 mcg-om3 35 mg-dha 1 tab PO DAILY SUPPLEMENT 01/26/24 07/25/24 History 25 mg-epa 5 mg-fish oil chew tablet omeprazole 20 mg capsule,delayed 20 mg PO DAILY GERD 01/26/24 07/25/24 History release labetalol 100 mg tablet 100 mg PO BID hypertension #60 07/24/24 07/26/24 Rx tabs venlafaxine 75 mg capsule,extended 150 mg PO QAM ANTI-DEPRESSANT 08/08/24 Unknown History release 24 hr (Effexor XR) Allergy/AdvReac Type Severity Reaction Status Date / Time No Known Allergies Allergy Verified 09/06/24 13:27 Family History Father Colon cancer, Onset Age: 58 colon CVA (cerebral vascular accident), Onset Age: 59 post colon surgery Surgical History Status post bilateral salpingectomy H/O section History of arthroscopic knee surgery History of cholecystectomy Social History adopted: No household members: spouse and children number of children: 3 current occupational status: employed 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 current occupational exposures/hazards: No pets and animals: Yes pets and animals: dog(s) history of recent travel: Yes ([place], [place]) out of state: Yes out of country: No sexually active: Yes Smoking Status: Never smoker alcohol intake: never substance use type: does not use well-balanced diet: daily or most days caffeine: Yes Type: carbonated beverages Number of servings: 3 eating out: 1-3 times/week during the past year weight has: increased > 10 lbs what type of physical activity do you participate in: walking frequency: daily duration: 15-30 minutes/day mamta/scientology: None seatbelt use: always do you feel safe at home: Yes additional social history: [employer] History 2 Elective abortions Hx Para 2 Spontaneous abortions Hx # Term Pregnancies 1 Ectopic pregnancies Hx # Pregnancies 1 Multiple births 1 # of living children 3 Past Pregnancies Del. Date Name GA/Weeks Outcome Route Bth Weight Gen Labor Lgth Anesthesia Del Locatn Provider FOB 10/13/13 Melissa 38 live - full term 6#15 oz Female [facility] Dr. Estelle Davenport 07/26/24 Nasir 33 live - 4 lb 2 oz Male spinal [facility] Issac 07/26/24 Toney 33 live - 4 lb 9 oz Male spinal [facility] Issac Delivery Date: 10/13/13 Last Updated by: Jasmin Eugene CS failure to progress, general due to scoliosis Delivery Date: 07/26/24 Last Updated by: Chrissy Pickens RN Csection for BPP 11/28 Delivery Date: 07/26/24 Last Updated by: Chrissy Pickens RN Csection for BPP 11/28 Assessment & Plan (1) Status post section: (2) RUQ pain: PLAN: Plan initially the Pr:cr ratio was 4000, however after straight cath and avoidance of her heavy vaginal bleed, the protein was negative. serum testing was also normal. A ruq ultrasound was ordered for some discomfort in this area and showed mild hepatomegally. this may be attributed to her morbid obesity and I would like for her to follow up on this with her pcp. pressures are stable in the 130's/70's here. - plan to continue her labetalol ok to dc to home. follow up for bp check in office in one week.
== END 2024-09-06 20:15 | disposition home or self-care (01) ==
LOC: WPOUT 13:48 → WP 13:48
PROVIDERS: PCP Internal Medicine; Referring Provider Obstetrics & Gynecology; Visit Provider Obstetrics & Gynecology
DX: O99.893 Other specified diseases and conditions complicating puerperium (principal); E66.01 Morbid (severe) obesity due to excess calories; K21.9 Gastro-esophageal reflux disease without esophagitis; R10.11 Right upper quadrant pain; O99.63 Diseases of the digestive system complicating the puerperium; O99.215 Obesity complicating the puerperium
CPT/HCPCS: 36415; 76705; 82565; 82570; 83615; 84156; 84450; 84460; 84550; 85027; 99221; G0378

== ENCOUNTER → 2025-07-29 | Outpatient (CLI) | payer OTHER, SELFPAY ==
[2025-08-01 13:08] LABS: HPV APTIMA, High Risk Negative (Negative)
== END | disposition home or self-care (01) ==
LOC: LABSPEC 16:08
PROVIDERS: PCP Internal Medicine; Visit Provider Advanced Practice Midwife
DX: Z12.4 Encounter for screening for malignant neoplasm of cervix (principal)
CPT/HCPCS: 87624; 88175; G0145